=== PATIENT | male | born 1945 | race Caucasian/White ===

== ENCOUNTER 2020-08-29 16:06 | Inpatient (IN) | payer MEDICARE ==
[2020-08-29] MEDS ORDERED: SODIUM CHLORIDE 0.9% 1,000 ML IV ONE ×2 (16:21→17:14)
[2020-08-29] MEDS ORDERED: MORPHINE SULFATE 4 MG/ML SYRINGE IVP STA (16:21)
[2020-08-29] MEDS ORDERED: KETOROLAC 15 MG/ML 1 ML VIAL IVP STA (16:21)
[2020-08-29] MEDS ORDERED: ACETAMINOPHEN TAB 325 MG TAB PO STA (16:21)
--- NOTE | 2020-08-29 16:52 | ED ---
Fever HPI - General Chief Complaint: Fever Stated Complaint: Fever,Chemo pt Time Seen by Provider: 08/29/20 16:12 Source: patient, family Mode of arrival: ambulatory Limitations: no limitations - History of Present Illness Initial Comments: Patient is a 74-year-old male with past medical history remarkable for CAD, cholangiocarcinoma currently receiving chemotherapy, chest pain/angina, hyperlipidemia, hypertension, MT who presents emergency Department complaining of 3 day history of generalized body aches with an associated fever. Patient has been having fevers up to 102F that have responded to Tylenol at home. Patient is not having any obvious symptoms at this time of infection, denying any dysuria, cough, diarrhea. He states he is frequently nauseous and denies any new abdominal pain, but does endorse some right upper quadrant epigastric abdominal pain. He states he feels dehydrated. He has most known sick contacts at home. He did receive the COVID-19 vaccination is up-to-date. He denies any chest pain at this time. He denies any lightheadedness or blurry vision at this time. They're concerned because they know he is high risk for infection and family brought him into the emergency department for evaluation. Patient does h ave a history of a Whipple procedure. - Related Data Allergies Allergy/AdvReac Type Severity Reaction Status Date / Time No Known Allergies Allergy Verified 08/29/20 16:11 Review of Systems ROS Statement: Those systems with pertinent positive or pertinent negative responses have been documented in the HPI. Review of Systems: CONST: Endorses fever EYES: Denies blurry vision ENT: Denies nasal congestion C/V: Denies Chest pain RESP: Denies shortness of breath GI: Endorses abdominal pain, nausea : Denies dysuria SKIN: Denies rash. MSK: Endorses generalized joint discomfort. NEURO: Denies headache ROS Other: All systems not noted in ROS Statement are negative. Past Medical History Past Medical History: Coronary Artery Disease (CAD), Cancer, Chest Pain / Angina, Hyperlipidemia, Hypertension, Myocardial Infarction (MT) History of Any Multi-Drug Resistant Organisms: None Reported Past Surgical History: Cholecystectomy, Coronary Bypass/CABG, Heart Catheterization, Heart Catheterization With Stent, Hernia Repair Additional Past Surgical History / Comment(s): whipple procedure Past Psychological History: No Psychological Hx Reported Smoking Status: Never smoker Past Alcohol Use History: None Reported Past Drug Use History: None Reported General Exam - General Exam Comments Initial Comments: General: Somewhat cachectic but in no acute distress. HEAD: Normal with no signs of head trauma. EYES: PERRLA, EOMI, conjunctiva normal, no discharge. ENT: Hearing is grossly intact. Patient has dry mucous membranes. Oropharynx is otherwise within normal limits. RESPIRATORY: Clear breath sounds bilaterally. No wheezes, rales, or rhonchi. C/V: Regular rate and rhythm. S1 and S2 auscultated, no edema, peripheral pulses 2+ and intact throughout ABD: Abdomen soft, nondistended. Patient is tender to palpation in the epigastric and right upper quadrant regions, they states is typical. There is no guarding. There is no rebound tenderness. There are no peritoneal signs. EXT: Normal range of motion, no obvious deformity SKIN: No rashes or lesions observed on exposed skin. NEURO: Alert and oriented x 4. Cranial nerves II-XII intact. No focal sensory or strength deficits. Limitations: no limitations Course Vital Signs 08/29/20 08/29/20 16:07 18:21 Temperature 100.7 F H 99.7 F H Pulse Rate 89 82 Respiratory 24 18 Rate Blood Pressure 132/61 103/55 O2 Sat by Pulse 98 100 Oximetry Medical Decision Making - Medical Decision Making Based on the patient's presentation and physical exam, I'm concerned for possible sepsis versus neutropenia and fever versus other source of infection at this time. He is a high risk due to the chemoradiation and being immunocompromised. Therefore brought workup will be obtained including blood cultures, laboratory studies, urinalysis, chest x-ray as well as a CT abdomen and pelvis. He will be given 1 L fluid bolus. I Rex be ordered. I will hold antibiotics initially and evaluated for obvious source of infection, but anticipates starting on his laboratory studies returned. He'll be contacted to continue his cardiac monitoring. We will obtain a screening EKG. He'll be given Tylenol for his fever as well as pain medications. He was in agreement with this plan. Patient's EKG revealed no acute signs of ischemia. Chest x-ray showed no acute cardiopulmonary process. Laboratory studies were remarkable for a leukopenia with a white count of 3.7 but no neutropenia. Patient has a normocytic anemia of 11.2. Patient has an elevated lactic acidosis of 4.1 with no anion gap present. He does appear mildly dehydrated with a slightly decreased sodium of 135. Patient does have some mild obstructive signs on blood work, with an elevated alk phos of 833 but LFTs are mildly elevated near 100. Urinalysis is unremarkable. Patient was coded and flu negative. CT abdomen and pelvis revealed postsurgical changes but no acute signs of infection or process. To the patient's lactic acidosis as well as concern for sepsis due to having 3 sirs criteria including leukopenia, tachycardia, fever, we will start him on empiric antibiotics, vancomycin and cefepime. An additional fluid bolus is ordered. repeat lactate is pending. Reevaluation, patient's ear is slightly improved. I did review his laboratory studies as well as imaging with him and explained the plan for admission for sepsis. The patient was in agreement with this plan. I do not believe that he requires ICU admission at this time as he is hemodynamically stable and generally well appearing otherwise. I did consult the patient's oncologist, Dr. Null who agreed with the plan and requested that we obtain an ultrasound of the gallbladder to assess for any obstructive pathology. This was ordered. I spoke with the admitting team under Dr. Maria who was in agreement and accepted the admission. She requested that I consult infectious disease doctor Dr. Gallagher, who I spoke with over the phone and agreed to follow the patient. He was in agreement with the antibiotic selection as well. Patient was therefore admitted to the hospital in serious condition. - Lab Data Result diagrams: 08/29/20 16:31 08/29/20 16:31 Lab Results 08/29/20 08/29/20 08/29/20 Range/Units 16:31 16:31 16:31 WBC 3.7 L (3.8-10.6) k/uL RBC 3.61 L (4.30-5.90) m/uL Hgb 11.2 L (13.0-17.5) gm/dL Hct 32.5 L (39.0-53.0) % MCV 89.9 (80.0-100.0) fL MCH 31.0 (25.0-35.0) pg MCHC 34.4 (31.0-37.0) g/dL RDW 16.2 H (11.5-15.5) % Plt Count 340 (150-450) k/uL MPV 8.0 Neutrophils % (Manual) 69 % Band Neuts % (Manual) 3 % Lymphocytes % (Manual) 14 % Monocytes % (Manual) 12 % Eosinophils % (Manual) 1 % Basophils % (Manual) 1 % Neutrophils # (Manual) 2.60 (1.3-7.7) k/uL Lymphocytes # (Manual) 0.52 L (1.0-4.8) k/uL Monocytes # (Manual) 0.44 (0-1.0) k/uL Eosinophils # (Manual) 0.04 (0-0.7) k/uL Basophils # (Manual) 0.04 (0-0.2) k/uL Nucleated RBCs 0 (0-0) /100 WBC Manual Slide Review Performed Anisocytosis Slight PT 12.6 H (9.0-12.0) sec INR 1.2 H (<1.2) APTT 24.4 (22.0-30.0) sec Sodium 135 L (137-145) mmol/L Potassium 4.1 (3.5-5.1) mmol/L Chloride 104 (98-107) mmol/L Carbon Dioxide 21 L (22-30) mmol/L Anion Gap 10 mmol/L BUN 22 H (9-20) mg/dL Creatinine 0.75 (0.66-1.25) mg/dL Est GFR (CKD-EPI)AfAm >90 (>60 ml/min/1.73 sqM) Est GFR (CKD-EPI)NonAf 89 (>60 ml/min/1.73 sqM) Glucose 219 H (74-99) mg/dL Lactic Ac Sepsis Rflx Plasma Lactic Acid Uli (0.7-2.0) mmol/L Calcium 8.7 (8.4-10.2) mg/dL Magnesium 1.6 (1.6-2.3) mg/dL Total Bilirubin 1.5 H (0.2-1.3) mg/dL AST 112 H (17-59) U/L ALT 90 H (4-49) U/L Alkaline Phosphatase 833 H (38-126) U/L Total Protein 5.4 L (6.3-8.2) g/dL Albumin 2.8 L (3.5-5.0) g/dL Urine Color Urine Appearance (Clear) Urine pH (5.0-8.0) Ur Specific [place] (1.001-1.035) Urine Protein (Negative) Urine Glucose (UA) (Negative) Urine Ketones (Negative) Urine Blood (Negative) Urine Nitrite (Negative) Urine Bilirubin (Negative) Urine Urobilinogen (<2.0) mg/dL Ur Leukocyte Esterase (Negative) Influenza Type A (PCR) (Not Detectd) Influenza Type B (PCR) (Not Detectd) RSV (PCR) (Not Detectd) SARS-CoV-2 (PCR) (Not Detectd) 08/29/20 08/29/20 08/29/20 Range/Units 16:31 16:31 16:45 WBC (3.8-10.6) k/uL RBC (4.30-5.90) m/uL Hgb (13.0-17.5) gm/dL Hct (39.0-53.0) % MCV (80.0-100.0) fL MCH (25.0-35.0) pg MCHC (31.0-37.0) g/dL RDW (11.5-15.5) % Plt Count (150-450) k/uL MPV Neutrophils % (Manual) % Band Neuts % (Manual) % Lymphocytes % (Manual) % Monocytes % (Manual) % Eosinophils % (Manual) % Basophils % (Manual) % Neutrophils # (Manual) (1.3-7.7) k/uL Lymphocytes # (Manual) (1.0-4.8) k/uL Monocytes # (Manual) (0-1.0) k/uL Eosinophils # (Manual) (0-0.7) k/uL Basophils # (Manual) (0-0.2) k/uL Nucleated RBCs (0-0) /100 WBC Manual Slide Review Anisocytosis PT (9.0-12.0) sec INR (<1.2) APTT (22.0-30.0) sec Sodium (137-145) mmol/L Potassium (3.5-5.1) mmol/L Chloride (98-107) mmol/L Carbon Dioxide (22-30) mmol/L Anion Gap mmol/L BUN (9-20) mg/dL Creatinine (0.66-1.25) mg/dL Est GFR (CKD-EPI)AfAm (>60 ml/min/1.73 sqM) Est GFR (CKD-EPI)NonAf (>60 ml/min/1.73 sqM) Glucose (74-99) mg/dL Lactic Ac Sepsis Rflx Plasma Lactic Acid Uli 4.1 H* (0.7-2.0) mmol/L Calcium (8.4-10.2) mg/dL Magnesium (1.6-2.3) mg/dL Total Bilirubin (0.2-1.3) mg/dL AST (17-59) U/L ALT (4-49) U/L Alkaline Phosphatase (38-126) U/L Total Protein (6.3-8.2) g/dL Albumin (3.5-5.0) g/dL Urine Color Yellow Urine Appearance Clear (Clear) Urine pH 5.5 (5.0-8.0) Ur Specific [place] 1.026 (1.001-1.035) Urine Protein Trace H (Negative) Urine Glucose (UA) Trace H (Negative) Urine Ketones Negative (Negative) Urine Blood Negative (Negative) Urine Nitrite Negative (Negative) Urine Bilirubin Negative (Negative) Urine Urobilinogen <2.0 (<2.0) mg/dL Ur Leukocyte Esterase Negative (Negative) Influenza Type A (PCR) Not Detected (Not Detectd) Influenza Type B (PCR) Not Detected (Not Detectd) RSV (PCR) Not Detected (Not Detectd) SARS-CoV-2 (PCR) Not Detected (Not Detectd) 08/29/20 Range/Units 17:07 WBC (3.8-10.6) k/uL RBC (4.30-5.90) m/uL Hgb (13.0-17.5) gm/dL Hct (39.0-53.0) % MCV (80.0-100.0) fL MCH (25.0-35.0) pg MCHC (31.0-37.0) g/dL RDW (11.5-15.5) % Plt Count (150-450) k/uL MPV Neutrophils % (Manual) % Band Neuts % (Manual) % Lymphocytes % (Manual) % Monocytes % (Manual) % Eosinophils % (Manual) % Basophils % (Manual) % Neutrophils # (Manual) (1.3-7.7) k/uL Lymphocytes # (Manual) (1.0-4.8) k/uL Monocytes # (Manual) (0-1.0) k/uL Eosinophils # (Manual) (0-0.7) k/uL Basophils # (Manual) (0-0.2) k/uL Nucleated RBCs (0-0) /100 WBC Manual Slide Review Anisocytosis PT (9.0-12.0) sec INR (<1.2) APTT (22.0-30.0) sec Sodium (137-145) mmol/L Potassium (3.5-5.1) mmol/L Chloride (98-107) mmol/L Carbon Dioxide (22-30) mmol/L Anion Gap mmol/L BUN (9-20) mg/dL Creatinine (0.66-1.25) mg/dL Est GFR (CKD-EPI)AfAm (>60 ml/min/1.73 sqM) Est GFR (CKD-EPI)NonAf (>60 ml/min/1.73 sqM) Glucose (74-99) mg/dL Lactic Ac Sepsis Rflx Y Plasma Lactic Acid Uli (0.7-2.0) mmol/L Calcium (8.4-10.2) mg/dL Magnesium (1.6-2.3) mg/dL Total Bilirubin (0.2-1.3) mg/dL AST (17-59) U/L ALT (4-49) U/L Alkaline Phosphatase (38-126) U/L Total Protein (6.3-8.2) g/dL Albumin (3.5-5.0) g/dL Urine Color Urine Appearance (Clear) Urine pH (5.0-8.0) Ur Specific [place] (1.001-1.035) Urine Protein (Negative) Urine Glucose (UA) (Negative) Urine Ketones (Negative) Urine Blood (Negative) Urine Nitrite (Negative) Urine Bilirubin (Negative) Urine Urobilinogen (<2.0) mg/dL Ur Leukocyte Esterase (Negative) Influenza Type A (PCR) (Not Detectd) Influenza Type B (PCR) (Not Detectd) RSV (PCR) (Not Detectd) SARS-CoV-2 (PCR) (Not Detectd) - EKG Data -: EKG Interpreted by Me EKG Comments: 12-lead Electrocardiogram Interpretation Note EKG was reviewed and interpreted by myself. 12-lead ECG performed at 1625 is interpreted by me as revealing normal sinus rhythm with a PAC. At a rate of 85 beats per minute. [place] is normal. [place] interval is 140 ms, QRS duration is 80 ms, QTC is 464 ms.. There were no ST or T wave abnormalities to suggest myocar dial ischemia or injury. R wave progression across the precordium was satisfactory. By my interpretation this EKG is non-diagnostic for acute ischemia. Disposition Clinical Impression: Sepsis, Leukopenia, Systemic inflammatory response syndrome (SIRS), Fever of unknown origin, Cholangiocarcinoma Disposition: ADMITTED IP TO THIS HOSP Condition: Serious Referrals: Marlon Avelar MD [Primary Care Provider] - 1-2 days
--- NOTE | 2020-08-29 17:00 | XR ---
EXAMINATION TYPE: XR chest 1V portable DATE OF EXAM: 08/29/2020 COMPARISON: NONE HISTORY: Fever TECHNIQUE: FINDINGS: There is no heart failure nor confluent pneumonic infiltrate. Costophrenic angles are fairl y clear. There are no hilar masses. There are sternal wires. IMPRESSION: No active cardiopulmonary disease. Normal heart.
[2020-08-29 17:02] LABS: Potassium 4.1 mmol/L (3.5-5.1)
[2020-08-29 17:03] LABS: ALT 90 U/L (4-49); AST 112 U/L (17-59); African American GFR (CKD) >90 (>60 ml/min/1.73 sqM); Albumin 2.8 g/dL (3.5-5.0); Alkaline Phosphatase 833 U/L (38-126); Anion Gap 10 mmol/L; Blood Urea Nitrogen 22 mg/dL (9-20); Calcium 8.7 mg/dL (8.4-10.2); Carbon Dioxide 21 mmol/L (22-30); Chloride 104 mmol/L (98-107); Glucose 219 mg/dL (74-99); Magnesium 1.6 mg/dL (1.6-2.3); Non-African American GFR(CKD) 89 (>60 ml/min/1.73 sqM); Sodium 135 mmol/L (137-145); Total Bilirubin 1.5 mg/dL (0.2-1.3); Total Protein 5.4 g/dL (6.3-8.2)
[2020-08-29 17:07] LABS: INR 1.2 (<1.2); Partial Thromboplastin Time 24.4 sec (22.0-30.0); Prothrombin Time 12.6 sec (9.0-12.0)
[2020-08-29 17:13] LABS: Anisocytosis Slight; HCT 32.5 % (39.0-53.0); HGB 11.2 gm/dL (13.0-17.5); MCHC 34.4 g/dL (31.0-37.0); MCV 89.9 fL (80.0-100.0); Platelet Count 340 k/uL (150-450); RBC 3.61 m/uL (4.30-5.90); RDW 16.2 % (11.5-15.5); WBC 3.7 k/uL (3.8-10.6)
[2020-08-29] MEDS ORDERED: VANCOMYCIN IV PER PHARMACY 1 EACH MISC MISCELLANE PRN (17:13)
[2020-08-29] MEDS ORDERED: CEFEPIME 2 GM in SODIUM CHLORIDE 0.9% 100 ML IVPB STA (17:14)
[2020-08-29] MEDS ORDERED: VANCOMYCIN 1,000 MG in SODIUM CHLORIDE 0.9% 250 ML IVPB STA (17:21)
[2020-08-29 17:49] LABS: Appearance,Urine Clear (Clear); Bilirubin,Urine Negative (Negative); Blood,Urine Negative (Negative); Color,Urine Yellow; Glucose,Urine (UA) Trace (Negative); Ketones,Urine Negative (Negative); Leukocyte Esterase,Urine Negative (Negative); Nitrite,Urine Negative (Negative); PH, Urine 5.5 (5.0-8.0); Protein,Urine Trace (Negative); Specific Gravity,Urine 1.026 (1.001-1.035); Urobilinogen,Urine <2.0 mg/dL (<2.0)
[2020-08-29 17:49] LABS: Band Neutrophils % 3 %; Basophils # (M) 0.04 k/uL (0-0.2); Eosinophils # (M) 0.04 k/uL (0-0.7); Lymphocytes # (M) 0.52 k/uL (1.0-4.8); Monocytes # (M) 0.44 k/uL (0-1.0); Neutrophils % (M) 69 %; Nucleated Red Blood Cells 0 /100 WBC (0-0); Total Cells Counted 100
--- NOTE | 2020-08-29 18:05 | CT ---
EXAMINATION TYPE: CT abdomen pelvis w con DATE OF EXAM: 08/29/2020 COMPARISON: None HISTORY: Fever and abdominal pain. Hx of cholangio carcinoma. CT DLP: 716.1 mGycm Automated exposure control for dose reduction was used. CONTRAST: Performed with IV Contrast, patient injected with 100ml mL of Isovue 300. Images obtained from the diaphragm to the floor the pelvis with IV contrast. There is mild subsegmental atelectasis at the lung bases. Heart size is normal. There is no pericardi al effusion. There are sternal wires. There is air in the biliary tree. Liver spleen stomach appear intact. The bile ducts are not dilated. There are surgical clips in the gastric antrum. There is significant pancreatic atrophy. There are s urgical clips at the nina hepatis. There is cholecystectomy. There is no adrenal mass. Kidneys have normal size. There is normal contrast opacification of the kid neys. There is no hydronephrosis. Delayed images show normal renal excretion. There is no retroperito rafy adenopathy. Bladder distends smoothly. There is no inguinal hernia. There are some sigmoid diver ticula. I see no diverticulitis. Appendix is anterior and appears normal. There is no mesenteric dirk a. There is no ascites or free air. There is no sign of a bowel obstruction. The lumbar vertebra show normal alignment. There is degenerative disc space narrowing at L3-4 L4-5 wi th spur formation. There is no compression fracture. The bony pelvis is intact. Hip joints are intact . IMPRESSION: Postsurgical changes with pancreatic atrophy and apparent resection of the pancreatic head and air re flux into the biliary tree. Surgery at the gastric antrum. Cholecystectomy. No dilated ducts. I do no t see sign of recurrent tumor. Sigmoid diverticulosis. Normal appendix. No bowel obstruction.
[2020-08-29] MEDS ORDERED: ACETAMINOPHEN TAB 325 MG TAB PO PRN (18:46)
[2020-08-29] MEDS: SODIUM CHLORIDE 0.9% 1,000 ML IV ONE (20:00)
--- NOTE | 2020-08-29 20:22 | US ---
EXAMINATION TYPE: US abdomen limited DATE OF EXAM: 08/29/2020 COMPARISON: CT CLINICAL HISTORY: evaluate for obstructive process. Evaluate for obstructive process per order. Hx ch olecystectomy, whipple. EXAM MEASUREMENTS: Liver Length: 14.7 cm CBD: Unable to visualize. Right Kidney: 10.7 x 5.6 x 4.5 cm Limited due to overlying bowel gas. Pancreas: Limited visibility. Liver: Limited. Most images taken intercostally. Appears coarse in echotexture. Gallbladder: Hx cholecystectomy. Evidence for sonographic Mak's sign: No CBD: Unable to visualize. Right Kidney: No hydronephrosis or masses seen IMPRESSION: Common bile duct not seen. No sign of dilation of the intrahepatic bile ducts. No focal liver defect.
[2020-08-29 22:07] LABS: Glucose,Whole Blood 206 mg/dL (75-99)
[2020-08-30] MEDS: VANCOMYCIN 1,000 MG in SODIUM CHLORIDE 0.9% 250 ML IVPB SCH ×2 (05:27→18:25)
[2020-08-30] MEDS: SODIUM CHLORIDE 0.9% 1,000 ML IV ONE (06:02)
[2020-08-30 06:29] LABS: African American GFR (CKD) >90 (>60 ml/min/1.73 sqM); Non-African American GFR(CKD) >90 (>60 ml/min/1.73 sqM)
[2020-08-30 07:30] LABS: Glucose,Whole Blood 137 mg/dL (75-99)
--- NOTE | 2020-08-30 07:41 | P.CONS ---
History of Present Illness - Reason for Consult Consult date: 08/30/20 Currently undergoing chemotherapy for CHolangiocarcinoma Requesting physician: Roberto Cazares - Chief Complaint Fever - History of Present Illness Mr Mcarthur is a pleasant white male, with overall well-controlled medical problems. He had presented in 03/10 with complains of vague upper abdominal discomfort, some nausea and decreased appetite as well as weight loss. He was found to have elevated bilirubin with evidence of bleeding obstruction. He underwent CBD stenting. 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 CT scan from 03/10/20 showed no evidence of metastatic disease. The patient was felt to be a candidate for definitive resection he underwent surgery on 04/22/20. He had a Whipple's procedure with pancreatic or duodenectomy, and retroperitone al lymph node dissection. Biopsy showed 1.8 cm cholangiocarcinoma in the pancreatic portion of the bile duct (extrahepatic for adenocarcinoma), invasion to the depth of 5-12 mm. Margins were negative. Pancreatic margins were uninvolved. 2/32 lymph nodes were involved. In addition, and hepatic artery nodes and portal lymph nodes were also excised and found to be negative. The patient had somewhat slow recovery after surgery, with decreased appetite, abdominal pain, and persistent weight loss. He had hospital admission in 06/08 for fever and abdominal pain with no definite source of infection found on scans. He improved with supportive treatment including antibiotics. Appetite slowly improved with medications for gastric emptying, as well as Creon. He was then referred here for adjuvant systemic therapy. Patient states that he has noticed definite gradual improvement since the first week of 07/08. Repeat CT scans on 05/12/20 had shown a 1.9 cm irregular fluid and gas in the surgical site, and some wall thickening and mucosal enhancement of the bile ducts. Cholangitis was not ruled out. No evidence of metastatic disease. Repeat CT abdomen and pelvis without contrast on 06/02/20 showed nonspecific abdomen with some attenuation of the anterior presented suggestive of in flammation. Again no metastatic disease noted. Patient denied any history of malignancy other than skin cancer. 08/04/20-He was supposed to start chemo yesterday but he cancelled because he had F, stomach pain, upset stomach, diarrhea. He can have diarrhea every few hours, it was watery yesterday. Feeling ok today, no fevers just a wore out. Cramping in the lower abd, sharp pain in the upper abd is not new for him, been since surgery. Occasional heartburn. No other c/o on a 10 point ROS He decided adjuvant chemotherapy per [facility] conditions with gemcitabine and oxaliplatin in 08/10/20. His status post 1 cycle. He denied any f/c/v. He reports increased nausea, and abdominal discomfort, interms of burning, bloating. Diarrhea is improved. He has increase in fatigue. No significant mucositis. His ROS is otherwise as per HPI and negative out of 10 The pt has had worsening of some of the symptoms he was having prior to chemo, since starting rx. His CBC is normal, other than a plt of 109 - CHeck labs - Continue chemo - His increased nausea appears to be related to gastritis. He is on OMeprazole 20 mg BID. Add Carafate - Supportive care measures discussed 08/24/20-patient is status post cycle 1 day 1 and 8 of Gemzar and he completed his first 14 days of Xeloda yesterday. Starting 1 week ago pt notes N, stomach upset, no V, mod/severe oral irritation which has caused him to not tolerate oral intake very well, throat is not sore, his feet are swollen, red and painful around the ankles, no numbness, falls. Moderately weak. No cardiac or respiratory symptoms to report. No changes in bowel or bladder that are concerning. Today patient presents to the hospital with increased fevers. Kohler cultures, IV broad spectum initiated. He has been struggling with nausea throughout as well. Review of Systems All systems: negative Constitutional: Reports as per HPI Past Medical History Past Medical History: Coronary Artery Disease (CAD), Cancer, Chest Pain / Angina, Hyperlipidemia, Hypertension, Myocardial Infarction ([place]) Last Myocardial Infarction Date:: 2000 History of Any Multi-Drug Resistant Organisms: None Reported Past Surgical History: Cholecystectomy, Coronary Bypass/CABG, Heart Cath eterization, Heart Catheterization With Stent, Hernia Repair Additional Past Surgical History / Comment(s): whipple procedure Date of Last Stent Placement:: 2000 Past Psychological History: No Psychological Hx Reported Smoking Status: Former smoker Past Alcohol Use History: None Reported Past Drug Use History: None Reported Medications and Allergies Home Medications Medication Instructions Recorded Confirmed Type Capecitabine [Xeloda] 1,500 mg PO DIRECTED 08/29/20 08/29/20 History Enalapril Maleate 5 mg PO BID 08/29/20 08/29/20 History Lipase/Protease/Amylase [Joce Dr 1 cap PO TID-W/MEALS 08/29/20 08/29/20 History 24,000 Units Capsule] Metoprolol Tartrate [Lopressor] 50 mg PO BID 08/29/20 08/29/20 History Omeprazole 20 mg PO BID 08/29/20 08/29/20 History Ondansetron HCl [Zofran] 4 mg PO Q4H PRN 08/29/20 08/29/20 History Sucralfate [Carafate] 1 gm PO TID 08/29/20 08/29/20 History Tamsulosin HCl [Flomax] 0.4 mg PO DAILY 08/29/20 08/29/20 History metFORMIN HCL 1,000 mg PO BID-W/MEALS 08/29/20 08/29/20 History Allergies Allergy/AdvReac Type Severity Reaction Status Date / Time No Known Allergies Allergy Verified 08/29/20 19:15 Physical Exam Vitals: Vital Signs Temp Pulse Pulse Resp BP BP BP 08/30/20 05:00 97.7 F 65 20 108/62 08/29/20 21:50 98.1 F 67 20 114/65 08/29/20 21:27 81 18 112/67 08/29/20 18:21 99.7 F H 82 18 103/55 08/29/20 16:07 100.7 F H 89 24 132/61 Pulse Ox 08/30/20 05:00 100 08/29/20 21:50 100 08/29/20 21:27 100 08/29/20 18:21 100 08/29/20 16:07 98 Intake and Output 08/29/20 08/30/20 08/30/20 22:59 06:59 14:59 Intake Total 100 100 Balance 100 100 Intake: Oral 100 100 Other: Voiding Method Toilet # Voids 2 Weight 56.245 kg - Constitutional General appearance: cooperative, no acute distress - EENT Dry mucus membraines, Lesions healing to lips (herpetic) Eyes: EOMI ENT: hard of hearing - Neck Neck: normal ROM - Respiratory Respiratory: bilateral: diminished - Cardiovascular Rhythm: regularly irregular - Gastrointestinal General gastrointestinal: soft, tenderness - Integumentary Integumentary: pale - Neurologic Neurologic: CNII-XII intact - Musculoskeletal Musculoskeletal: generalized weakness - Psychiatric Psychiatric: A&O x's 3, appropriate affect, intact judgment & insight Results CBC & Chem 7: 08/30/20 05:46 08/30/20 05:46 Labs: Abnormal Lab Results - Last 24 Hours (Table) 08/29/20 08/29/20 08/29/20 Range/Units 16:31 16:31 16:31 WBC 3.7 L (3.8-10.6) k/uL RBC 3.61 L (4.30-5.90) m/uL Hgb 11.2 L (13.0-17.5) gm/dL Hct 32.5 L (39.0-53.0) % RDW 16.2 H (11.5-15.5) % Lymphocytes # (Manual) 0.52 L (1.0-4.8) k/uL PT 12.6 H (9.0-12.0) sec INR 1.2 H (<1.2) Sodium 135 L (137-145) mmol/L Carbon Dioxide 21 L (22-30) mmol/L BUN 22 H (9-20) mg/dL Glucose 219 H (74-99) mg/dL POC Glucose (mg/dL) (75-99) mg/dL Plasma Lactic Acid Uli (0.7-2.0) mmol/L Total Bilirubin 1.5 H (0.2-1.3) mg/dL AST 112 H (17-59) U/L ALT 90 H (4-49) U/L Alkaline Phosphatase 833 H (38-126) U/L Total Protein 5.4 L (6.3-8.2) g/dL Albumin 2.8 L (3.5-5.0) g/dL Urine Protein (Negative) Urine Glucose (UA) (Negative) 08/29/20 08/29/20 08/29/20 Range/Units 16:31 16:45 22:05 WBC (3.8-10.6) k/uL RBC (4.30-5.90) m/uL Hgb (13.0-17.5) gm/dL Hct (39.0-53.0) % RDW (11.5-15.5) % Lymphocytes # (Manual) (1.0-4.8) k/uL PT (9.0-12.0) sec INR (<1.2) Sodium (137-145) mmol/L Carbon Dioxide (22-30) mmol/L BUN (9-20) mg/dL Glucose (74-99) mg/dL POC Glucose (mg/dL) 206 H (75-99) mg/dL Plasma Lactic Acid Uli 4.1 H* (0.7-2.0) mmol/L Total Bilirubin (0.2-1.3) mg/dL AST (17-59) U/L ALT (4-49) U/L Alkaline Phosphatase (38-126) U/L Total Protein (6.3-8.2) g/dL Albumin (3.5-5.0) g/dL Urine Protein Trace H (Negative) Urine Glucose (UA) Trace H (Negative) 08/30/20 Range/Units 07:29 WBC (3.8-10.6) k/uL RBC (4.30-5.90) m/uL Hgb (13.0-17.5) gm/dL Hct (39.0-53.0) % RDW (11.5-15.5) % Lymphocytes # (Manual) (1.0-4.8) k/uL PT (9.0-12.0) sec INR (<1.2) Sodium (137-145) mmol/L Carbon Dioxide (22-30) mmol/L BUN (9-20) mg/dL Glucose (74-99) mg/dL POC Glucose (mg/dL) 137 H (75-99) mg/dL Plasma Lactic Acid Uli (0.7-2.0) mmol/L Total Bilirubin (0.2-1.3) mg/dL AST (17-59) U/L ALT (4-49) U/L Alkaline Phosphatase (38-126) U/L Total Protein (6.3-8.2) g/dL Albumin (3.5-5.0) g/dL Urine Protein (Negative) Urine Glucose (UA) (Negative) CT scan - abdomen: report reviewed CT scan - pelvis: report reviewed Assessment and Plan (1) Cholangiocarcinoma Current Visit: Yes Status: Acute Code(s): C22.1 - INTRAHEPATIC BILE DUCT CARCINOMA SNOMED Code(s): 156231907 (2) Fever Current Visit: Yes Status: Acute Code(s): R50.9 - FEVER, UNSPECIFIED SNOMED Code(s): 634359472 (3) Systemic inflammatory response syndrome (SIRS) Current Visit: Yes Status: Acute Code(s): R65.10 - SIRS OF NON-INFECTIOUS OR IGIN W/O ACUTE ORGAN DYSFUNCTION SNOMED Code(s): 557373729 Plan: Plan: - Hold Chemo until resolution of above - Await kohler cultures and continue abx Add PT and in chair daily Add Urea 40% cream hands and feet BID Add Incentive Spirometer Stool Studies with diarrhea. Physician Attest: I have completed the full history and physical and agree with above dictation, dictated as a ascribe
[2020-08-30] MEDS ORDERED: ONDANSETRON 4 MG TAB PO PRN (08:39)
[2020-08-30 08:59] LABS: ALT 73 U/L (4-49); AST 77 U/L (17-59); Albumin 2.1 g/dL (3.5-5.0); Albumin/Globulin Ratio 0.9; Alkaline Phosphatase 597 U/L (38-126); Anion Gap 1 mmol/L; Blood Urea Nitrogen 18 mg/dL (9-20); Calcium 8.1 mg/dL (8.4-10.2); Carbon Dioxide 28 mmol/L (22-30); Chloride 109 mmol/L (98-107); Globulin 2.3 g/dL; Glucose 142 mg/dL (74-99); Potassium 3.9 mmol/L (3.5-5.1); Sodium 138 mmol/L (137-145); Total Bilirubin 0.7 mg/dL (0.2-1.3); Total Protein 4.4 g/dL (6.3-8.2)
[2020-08-30] MEDS: lisinopriL 20 MG TAB PO SCH (09:06)
[2020-08-30 09:29] LABS: Anisocytosis Slight; HCT 28.9 % (39.0-53.0); Hypochromasia Slight; MCH 29.7 pg (25.0-35.0); MCV 92.8 fL (80.0-100.0); Mean Platelet Volume 8.7; Platelet Count 291 k/uL (150-450); RBC 3.11 m/uL (4.30-5.90); RDW 16.7 % (11.5-15.5); WBC 2.9 k/uL (3.8-10.6)
[2020-08-30 09:36] LABS: HGB 9.3 gm/dL (13.0-17.5)
[2020-08-30] MEDS: METOPROLOL TARTRATE 50 MG TAB PO SCH ×2 (09:38→21:25)
[2020-08-30] MEDS: TAMSULOSIN 0.4 MG CAP.ER.24H PO SCH (09:38)
[2020-08-30] MEDS: SUCRALFATE 1 GM TAB PO SCH ×3 (09:38→21:25)
[2020-08-30] MEDS: PANTOPRAZOLE 40 MG TABLET PO SCH ×2 (09:38→21:25)
[2020-08-30] MEDS: CEFEPIME 2 GM in SODIUM CHLORIDE 0.9% 100 ML IVPB SCH ×2 (09:56→16:21)
[2020-08-30 11:39] VITALS: BMI 16.8
[2020-08-30 12:38] LABS: Glucose,Whole Blood 191 mg/dL (75-99)
[2020-08-30] MEDS: INSULIN ASPART (NovoLOG) 100 UNIT/ML VIAL SQ SCH ×3 (12:49→21:26)
[2020-08-30] MEDS: MINERAL OIL-WHITE PETROLATUM 120 GM JAR TOPICAL SCH ×2 (12:50→21:26)
[2020-08-30] MEDS: LIPASE 5,000/PROTEASE 17,000/AMYLASE 24,000 PO SCH ×2 (12:50→18:26)
--- NOTE | 2020-08-30 14:10 | P.HPIM ---
History of Present Illness H&P Date: 08/30/20 HISTORY OF PRESENT ILLNESS This is a 74-year-old male patient of Dr. Avelar with past history of myocardial infarction in 2000 with coronary artery disease status post PCI, hypertension, hyperlipidemia, history of CBD adenocarcinoma status post Whipple procedure with pancreatic or duodenectomy and retroperitoneal lymph node dissection on April 2020. No evidence of metastatic disease. Patient is status one cycle of gemcitabine and oxaliplatin in 08/10/20 and status post 14 days of Xeloda completed yesterday and cycle 1 of Gemzar patient states that he has had 3 days of fever but has been on and off since July. He complains of chronic abdominal pain. He states he has diarrhea on and off. He denies any black stool or bloody stool. He denies any palpitations or back pain. No dizziness. No seizure activity. At the time of evaluation, patient denies any nausea today. Patient presented to the clinic [facility] emergency center and found to have temperature max 100.7, heart rate 89, saturating rate 24, blood pressure 132/61, pulse ox 90% on room air. EKG was a sinus rhythm with no acute ST changes. WBC 3.7, hemoglobin 11.2, platelet count 340. Sodium 135, potassium 4.1, chloride 104, CO2 21, BUN 22 creatinine 0.75. Blood sugar 218. INR 1.2. Magnesium 1.6. Total bilirubin 1.5, AST 112, ALT 90, alkaline phosphatase 833. Albumin 2.8. Lactic acid 4.1 with repeat of 1.4. Urinalysis clear with nitrate and leukoesterase negative. Influenza, RSV, COVID-19 not detected. CAT scan of the abdomen and pelvis with contrast revealed postop changes with pancreatic atrophy and apparent resection of pancreatic head and air reflux into the biliary tree. Surgery at the gastric antrum. Cholecystectomy. No dilated ducts. No sign of recurrent tumor. Sigmoid diverticulosis. Normal appendix. No bowel obstruction. Chest x-ray reveals no active cardiopulmonary disease. Normal heart. Abdominal ultrasound revealed common bile duct not seen. No sign of dilation of the intrahepatic bile ducts. No focal liver defect. Patient has been admitted to the [facility] floor, consult with oncology and infectious disease. For now patient is continued on vancomycin and cefepime until seen by infectious disease. REVIEW OF SYSTEMS Constitutional: Reports fever,Reports chills, no night sweats. Reports weight change. Reports weakness, Reports fatigue no lethargy. No daytime sleepiness. EENT: No headache. No blurred vision or double vision, no loss of vision. No loss of Hearing, no ringing in the ears, no dizziness. No nasal drainage or congestion. No epistaxis. No sore throat. Lungs: No shortness of breath, cough, no sputum production. No wheezing. Cardiovascular: No chest pain, no lower extremity edema. No palpitations. No paroxysmal nocturnal dyspnea. No orthopnea. No lightheadedness or dizziness. No syncopal episodes. Abdominal: Reports abdominal pain. Reports nausea, no vomiting. No diarrhea. No constipation. No bloody or tarry stools. Reports loss of appetite. Genitourinary: No dysuria, increased frequency, urgency. No urinary retention. Musculoskeletal: No myalgias. Reports muscle weakness, no gait dysfunction, no frequent falls. No back pain. No neck pain. Integumentary: No wounds, no lesions. No rash or pruritus. No unusual bruising. No change in hair or nails. Neurologic: No aphasia. No facial droop. No change in mentation. No head injury. No headache. No paralysis. No paresthesia. Psychiatric: No depression. No anxiety. No mood swings. Endocrine: No abnormal blood sugars. No weight change. No excessive sweating or thirst. No cold intolerance. SOCIAL HISTORY Patient was a smoker for 1 pack per day for 12 years and quit in the 1970s. He denies any alcohol use. He does not utilize cane or walker. He lives at home with his . FAMILY HISTORY Mother is with history of Alzheimer's dementia. Father is at age 85 with history of coronary artery disease, COPD. Patient has 4 brothers and one has history of Alzheimer's. Patient has 3 sisters and one has from a horse accident. Patient has one son this past with history of lung disease smoking history. Patient's one son and one daughter alive with no major medical problems. PHYSICAL EXAMINATION Gen: This is a thin cachectic appearing 74-year-old male patient. He is resting in bed and appears to be comfortable at rest. HEENT: Head is atraumatic, normocephalic. Pupils equal, round. Sclerae is anicte nam. NECK: Supple. No JVD. No lymphadenopathy. No thyromegaly. LUNGS: Clear to auscultation. No wheezes or rhonchi. No intercostal retractions. HEART: Regular rate and rhythm. No murmur. ABDOMEN: Soft. Bowel sounds are present. No masses. Mild generalized tenderness. EXTREMITIES: No pedal edema. No calf tenderness. NEUROLOGICAL: Patient is awake, alert and oriented x3. Cranial nerves 2 through 12 are grossly intact. ASSESSMENT AND PLAN 1. Neutropenic sepsis. Consult with infectious disease and oncology. Continue cefepime and vancomycin. 2. CBD adenocarcinoma status post Whipple procedure. Consult with oncology. Xeloda on hold. Continue Zenpep for 3 times daily. 3. Lactic acidosis secondary to sepsis, resolved. Continue IV fluids. 4. Hypertension. Continue lisinopril 20 mg daily and Lopressor 50 mg twice daily both with parameters. 5. Diabetes mellitus type 2. Metformin on hold. Patient started on NovoLog insulin scale before meals and at bedtime. 6. History of coronary artery disease status post PCI, stable no complaints of chest pain. 7. Hyperlipidemia. Patient started on statin. 8. Gastroesophageal reflux disease. Continue omeprazole 20 mg twice daily and Carafate 1 g 3 times daily. 9. Severe protein calorie malnutrition secondary to underlying cancer and chemotherapy. BMI 16. Patient started on regular diet and [place] instant breakfast twice daily. 10. DVT prophylaxis. Heparin 5000 units subcu every 12 hours. Patient will be admitted to the hospital for a minimum of 2 night stay. CODE STATUS: Full code per patient's wishes. DISCHARGE PLAN Home. Impression and plan of care have been directed as dictated by the signing physician. Irma Sutton nurse practitioner acting as scribe for signing physician. Past Medical History Past Medical History: Coronary Artery Disease (CAD), Cancer, Chest Pain / Angina, Hyperlipidemia, Hypertension, Myocardial Infarction ([place]) Last Myocardial Infarction Date:: 2000 History of Any Multi-Drug Resistant Organisms: None Reported Past Surgical History: Cholecystectomy, Coronary Bypass/CABG, Heart Catheterization, Heart Catheterization With Stent, Hernia Repair Additional Past Surgical History / Comment(s): whipple procedure Date of Last Stent Placement:: 2000 Past Psychological History: No Psychological Hx Reported Smoking Status: Former smoker Past Alcohol Use History: None Reported Past Drug Use History: None Reported Medications and Allergies Home Medications Medication Instructions Recorded Confirmed Type Capecitabine [Xeloda] 1,500 mg PO DIRECTED 08/29/20 08/29/20 History Enalapril Maleate 5 mg PO BID 08/29/20 08/29/20 History Lipase/Protease/Amylase [Joce Tyson 1 cap PO TID-W/MEALS 08/29/20 08/29/20 History 24,000 Units Capsule] Metoprolol Tartrate [Lopressor] 50 mg PO BID 08/29/20 08/29/20 History Omeprazole 20 mg PO BID 08/29/20 08/29/20 History Ondansetron HCl [Zofran] 4 mg PO Q4H PRN 08/29/20 08/29/20 History Sucralfate [Carafate] 1 gm PO TID 08/29/20 08/29/20 History Tamsulosin HCl [Flomax] 0.4 mg PO DAILY 08/29/20 08/29/20 History metFORMIN HCL 1,000 mg PO BID-W/MEALS 08/29/20 08/29/20 History Allergies Allergy/AdvReac Type Severity Reaction Status Date / Time No Known Allergies Allergy Verified 08/29/20 19:15 Physical Exam Vitals: Vital Signs Temp Pulse Pulse Resp BP BP BP 08/30/20 05:00 97.7 F 65 20 108/62 08/29/20 21:50 98.1 F 67 20 114/65 08/29/20 21:27 81 18 112/67 08/29/20 18:21 99.7 F H 82 18 103/55 08/29/20 16:07 100.7 F H 89 24 132/61 Pulse Ox 08/30/20 05:00 100 08/29/20 21:50 100 08/29/20 21:27 100 08/29/20 18:21 100 08/29/20 16:07 98 Intake and Output 08/29/20 08/30/20 08/30/20 22:59 06:59 14:59 Intake Total 100 100 Balance 100 100 Intake: Oral 100 100 Other: Voiding Method Toilet # Voids 2 Weight 56.245 kg Results CBC & Chem 7: 08/30/20 05:46 08/30/20 05:46 Labs: Abnormal Lab Results - Last 24 Hours (Table) 08/29/20 08/29/20 08/29/20 Range/Units 16:31 16:31 16:31 WBC 3.7 L (3.8-10.6) k/uL RBC 3.61 L (4.30-5.90) m/uL Hgb 11.2 L (13.0-17.5) gm/dL Hct 32.5 L (39.0-53.0) % RDW 16.2 H (11.5-15.5) % Lymphocytes # (Manual) 0.52 L (1.0-4.8) k/uL PT 12.6 H (9.0-12.0) sec INR 1.2 H (<1.2) Sodium 135 L (137-145) mmol/L Chloride (98-107) mmol/L Carbon Dioxide 21 L (22-30) mmol/L BUN 22 H (9-20) mg/dL Glucose 219 H (74-99) mg/dL POC Glucose (mg/dL) (75-99) mg/dL Plasma Lactic Acid Uli (0.7-2.0) mmol/L Calcium (8.4-10.2) mg/dL Total Bilirubin 1.5 H (0.2-1.3) mg/dL AST 112 H (17-59) U/L ALT 90 H (4-49) U/L Alkaline Phosphatase 833 H (38-126) U/L Total Protein 5.4 L (6.3-8.2) g/dL Albumin 2.8 L (3.5-5.0) g/dL Urine Protein (Negative) Urine Glucose (UA) (Negative) 08/29/20 08/29/20 08/29/20 Range/Units 16:31 16:45 22:05 WBC (3.8-10.6) k/uL RBC (4.30-5.90) m/uL Hgb (13.0-17.5) gm/dL Hct (39.0-53.0) % RDW (11.5-15.5) % Lymphocytes # (Manual) (1.0-4.8) k/uL PT (9.0-12.0) sec INR (<1.2) Sodium (137-145) mmol/L Chloride (98-107) mmol/L Carbon Dioxide (22-30) mmol/L BUN (9-20) mg/dL Glucose (74-99) mg/dL POC Glucose (mg/dL) 206 H (75-99) mg/dL Plasma Lactic Acid Uli 4.1 H* (0.7-2.0) mmol/L Calcium (8.4-10.2) mg/dL Total Bilirubin (0.2-1.3) mg/dL AST (17-59) U/L ALT (4-49) U/L Alkaline Phosphatase (38-126) U/L Total Protein (6.3-8.2) g/dL Albumin (3.5-5.0) g/dL Urine Protein Trace H (Negative) Urine Glucose (UA) Trace H (Negative) 08/30/20 08/30/20 Range/Units 05:46 07:29 WBC (3.8-10.6) k/uL RBC (4.30-5.90) m/uL Hgb (13.0-17.5) gm/dL Hct (39.0-53.0) % RDW (11.5-15.5) % Lymphocytes # (Manual) (1.0-4.8) k/uL PT (9.0-12.0) sec INR (<1.2) Sodium (137-145) mmol/L Chloride 109 H (98-107) mmol/L Carbon Dioxide (22-30) mmol/L BUN (9-20) mg/dL Glucose 142 H (74-99) mg/dL POC Glucose (mg/dL) 137 H (75-99) mg/dL Plasma Lactic Acid Uli (0.7-2.0) mmol/L Calcium 8.1 L (8.4-10.2) mg/dL Total Bilirubin (0.2-1.3) mg/dL AST 77 H (17-59) U/L ALT 73 H (4-49) U/L Alkaline Phosphatase 597 H (38-126) U/L Total Protein 4.4 L (6.3-8.2) g/dL Albumin 2.1 L (3.5-5.0) g/dL Urine Protein (Negative) Urine Glucose (UA) (Negative) Thrombosis Risk Factor Assmnt - Choose All That Apply Any of the Below Risk Factors Present?: Yes Each Factor Represents 1 point: Sepsis (< 1month) Each Risk Factor Represents 3 Points: Age 75 years or older Other congenital or acquired thrombophilia - If yes, enter type in comment: No Thrombosis Risk Factor Assessment Total Risk Factor Score: 4 Thrombosis Risk Factor Assessment Level: Moderate Risk
[2020-08-30 16:11] LABS: Reticulocyte % 4.4 % (0.5-2.0)
[2020-08-30 17:34] LABS: Glucose,Whole Blood 160 mg/dL (75-99)
[2020-08-30 20:17] LABS: Glucose,Whole Blood 178 mg/dL (75-99)
[2020-08-30] MEDS: HEPARIN SODIUM,PORCINE/PF 5,000 UNIT/0.5 ML SYRINGE SQ SCH (21:25)
--- NOTE | 2020-08-30 22:39 | P.CONS ---
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 with pancreatic duodenectomy and left node dissection in April 2020 with no evidence of metastatic disease patient recently had been started on chemotherapy and has completed his first chemo cycle on 08/10/2020 patient apparently did have follow- up with oncology clinic and patient was noticed to be febrile with temperature 100.7 F patient mention he has not been feeling that would for the last day or 2 before presentation to the hospital patient denies having any headache or significant URI symptoms patient denies having any chest pain no shortness of breath or cough has been feeling nauseated but no vomiting some vague abdominal pain and did have some diarrhea no burning or frequency of urine on presentation to the hospital patient did have fever 100.7 F patient did have white count of 3.7 creatinine was normal her liver exams were mildly elevated urine was negative thompson PCR was negative patient did have a CT of the abdominal pelvis completed postsurgical changes with ventral carotic atrophy and repair resection of the pancreatic head and air reflux into the biliary tree no dilated duct patient also have a chest x-ray which was negative for acute cardiopulmonary disease and abdominal ultrasound was done, the bile duct none seen no signs of dilatation on intrahepatic bile duct patient has been started on broad-spectrum IV form of cefepime and vancomycin has been admitted to the hospital infectious disease was consulted for further management. Review of Systems Positive point has been mentioned in the HPI rest of the systems are negative Past Medical History Past Medical History: Coronary Artery Disease (CAD), Cancer, Chest Pain / Angina, Hyperlipidemia, Hypertension, Myocardial Infarction ([place]) Last Myocardial Infarction Date:: 2000 History of Any Multi-Drug Resistant Organisms: None Reported Past Surgical History: Cholecystectomy, Coronary Bypass/CABG, Heart Catheterization, Heart Catheterization With Stent, Hernia Repair Additional Past Surgical History / Comment(s): whipple procedure Date of Last Stent Placement:: 2000 Past Psychological History: No Psychological Hx Reported Smoking Status: Former smoker Past Alcohol Use History: None Reported Past Drug Use History: None Reported Medications and Allergies Home Medications Medication Instructions Recorded Confirmed Type Capecitabine [Xeloda] 1,500 mg PO DIRECTED 08/29/20 08/29/20 History Enalapril Maleate 5 mg PO BID 08/29/20 08/29/20 History Lipase/Protease/Amylase [Joce Dr 1 cap PO TID-W/MEALS 08/29/20 08/29/20 History 24,000 Units Capsule] Metoprolol Tartrate [Lopressor] 50 mg PO BID 08/29/20 08/29/20 History Omeprazole 20 mg PO BID 08/29/20 08/29/20 History Ondansetron HCl [Zofran] 4 mg PO Q4H PRN 08/29/20 08/29/20 History Sucralfate [Carafate] 1 gm PO TID 08/29/20 08/29/20 History Tamsulosin HCl [Flomax] 0.4 mg PO DAILY 08/29/20 08/29/20 History metFORMIN HCL 1,000 mg PO BID-W/MEALS 08/29/20 08/29/20 History Allergies Allergy/AdvReac Type Severity Reaction Status Date / Time No Known Allergies Allergy Verified 08/29/20 19:15 Physical Exam Vitals: Vital Signs Temp Pulse Pulse Resp BP BP BP 08/30/20 05:00 97.7 F 65 20 108/62 08/29/20 21:50 98.1 F 67 20 114/65 08/29/20 21:27 81 18 112/67 08/29/20 18:21 99.7 F H 82 18 103/55 08/29/20 16:07 100.7 F H 89 24 132/61 Pulse Ox 08/30/20 05:00 100 08/29/20 21:50 100 08/29/20 21:27 100 08/29/20 18:21 100 08/29/20 16:07 98 Intake and Output 08/29/20 08/30/20 08/30/20 22:59 06:59 14:59 Intake Total 100 100 Balance 100 100 Intake: Oral 100 100 Other: Voiding Method Toilet Toilet # Voids 2 Weight 56.245 kg 56.245 kg GENERAL DESCRIPTION: Elderly male lying in bed, no distress. No tachypnea or accessory muscle of respiration use. HEENT: Shows Pallor , no scleral icterus. Oral mucous membrane is dry. No pharyngeal erythema or thrush NECK: Trachea central, no thyromegaly. LUNGS: Unlabored breathing. Clear to auscultation anteriorly. No wheeze or crackle. HEART: S1, S2, regular rate and rhythm. No loud murmur ABDOMEN: Soft, no tenderness , guarding or rigidity, no organomegaly EXTREMITIES: No edema of feet. SKIN: No rash, no masses palpable. NEUROLOGICAL: The patient is awake, alert, oriented x3, mood and affect normal. Results CBC & Chem 7: 08/30/20 05:46 08/30/20 05:46 Labs: Abnormal Lab Results - Last 24 Hours (Table) 08/29/20 08/29/20 08/29/20 Range/Units 16:31 16:31 16:31 WBC 3.7 L (3.8-10.6) k/uL RBC 3.61 L (4.30-5.90) m/uL Hgb 11.2 L (13.0-17.5) gm/dL Hct 32.5 L (39.0-53.0) % RDW 16.2 H (11.5-15.5) % Lymphocytes # (Manual) 0.52 L (1.0-4.8) k/uL PT 12.6 H (9.0-12.0) sec INR 1.2 H (<1.2) Sodium 135 L (137-145) mmol/L Chloride (98-107) mmol/L Carbon Dioxide 21 L (22-30) mmol/L BUN 22 H (9-20) mg/dL Glucose 219 H (74-99) mg/dL POC Glucose (mg/dL) (75-99) mg/dL Plasma Lactic Acid Uli (0.7-2.0) mmol/L Calcium (8.4-10.2) mg/dL Total Bilirubin 1.5 H (0.2-1.3) mg/dL AST 112 H (17-59) U/L ALT 90 H (4-49) U/L Alkaline Phosphatase 833 H (38-126) U/L Total Protein 5.4 L (6.3-8.2) g/dL Albumin 2.8 L (3.5-5.0) g/dL Urine Protein (Negative) Urine Glucose (UA) (Negative) 08/29/20 08/29/20 08/29/20 Range/Units 16:31 16:45 22:05 WBC (3.8-10.6) k/uL RBC (4.30-5.90) m/uL Hgb (13.0-17.5) gm/dL Hct (39.0-53.0) % RDW (11.5-15.5) % Lymphocytes # (Manual) (1.0-4.8) k/uL PT (9.0-12.0) sec INR (<1.2) Sodium (137-145) mmol/L Chloride (98-107) mmol/L Carbon Dioxide (22-30) mmol/L BUN (9-20) mg/dL Glucose (74-99) mg/dL POC Glucose (mg/dL) 206 H (75-99) mg/dL Plasma Lactic Acid Uli 4.1 H* (0.7-2.0) mmol/L Calcium (8.4-10.2) mg/dL Total Bilirubin (0.2-1.3) mg/dL AST (17-59) U/L ALT (4-49) U/L Alkaline Phosphatase (38-126) U/L Total Protein (6.3-8.2) g/dL Albumin (3.5-5.0) g/dL Urine Protein Trace H (Negative) Urine Glucose (UA) Trace H (Negative) 08/30/20 08/30/20 08/30/20 Range/Units 05:46 05:46 07:29 WBC 2.9 L (3.8-10.6) k/uL RBC 3.11 L (4.30-5.90) m/uL Hgb 9.3 L D (13.0-17.5) gm/dL Hct 28.9 L (39.0-53.0) % RDW 16.7 H (11.5-15.5) % Lymphocytes # (Manual) (1.0-4.8) k/uL PT (9.0-12.0) sec INR (<1.2) Sodium (137-145) mmol/L Chloride 109 H (98-107) mmol/L Carbon Dioxide (22-30) mmol/L BUN (9-20) mg/dL Glucose 142 H (74-99) mg/dL POC Glucose (mg/dL) 137 H (75-99) mg/dL Plasma Lactic Acid Uli (0.7-2.0) mmol/L Calcium 8.1 L (8.4-10.2) mg/dL Total Bilirubin (0.2-1.3) mg/dL AST 77 H (17-59) U/L ALT 73 H (4-49) U/L Alkaline Phosphatase 597 H (38-126) U/L Total Protein 4.4 L (6.3-8.2) g/dL Albumin 2.1 L (3.5-5.0) g/dL Urine Protein (Negative) Urine Glucose (UA) (Negative) Assessment and Plan Assessment: patient presented to hospital with fever weakness in this patient who did have a history of adenocarcinoma of the common bile duct status post extensive surgery and this patient has completed his first chemotherapy patient did have mild GI symptoms however CT abdominal pelvis did not show any acute abnormality patient chest x-ray was negative urine is negative and had no obvious focus of infection on current examination with history of adenocarcinoma and recent surgery and possible cholangitis will be the likely source of his fever and likely from enteric gram-negative pathogen (1) Fever Current Visit: Yes Status: Acute Code(s): R50.9 - FEVER, UNSPECIFIED SNO MED Code(s): 421445403 Plan: 1-cefepime 2 g every 8 hours to continue along with vancomycin 2-gentle IV fluid We will follow on clinical condition and cultures to further adjust medication if needed Thank you for this consultation we will follow the patient along with you Time with Patient: Greater than 30
[2020-08-31] MEDS: CEFEPIME 2 GM in SODIUM CHLORIDE 0.9% 100 ML IVPB SCH ×3 (00:11→15:54)
[2020-08-31] MEDS ORDERED: VANCOMYCIN TROUGH DUE 1 EACH MISC MISCELLANE ONE (05:00)
[2020-08-31] MEDS: VANCOMYCIN 1,000 MG in SODIUM CHLORIDE 0.9% 250 ML IVPB SCH (05:53)
[2020-08-31 06:00] LABS: Anisocytosis Slight; HCT 29.9 % (39.0-53.0); HGB 9.4 gm/dL (13.0-17.5); MCH 28.8 pg (25.0-35.0); MCHC 31.4 g/dL (31.0-37.0); MCV 91.7 fL (80.0-100.0); Mean Platelet Volume 7.7; Platelet Count 349 k/uL (150-450); RBC 3.26 m/uL (4.30-5.90); RDW 16.8 % (11.5-15.5); WBC 2.7 k/uL (3.8-10.6)
[2020-08-31 06:31] LABS: ALT 48 U/L (4-49); AST 45 U/L (17-59); African American GFR (CKD) >90 (>60 ml/min/1.73 sqM); Albumin/Globulin Ratio 0.9; Alkaline Phosphatase 559 U/L (38-126); Anion Gap 2 mmol/L; Blood Urea Nitrogen 11 mg/dL (9-20); Calcium 7.6 mg/dL (8.4-10.2); Carbon Dioxide 28 mmol/L (22-30); Chloride 108 mmol/L (98-107); Globulin 2.2 g/dL; Glucose 186 mg/dL (74-99); Non-African American GFR(CKD) >90 (>60 ml/min/1.73 sqM); Potassium 3.4 mmol/L (3.5-5.1); Sodium 138 mmol/L (137-145); Total Bilirubin 0.4 mg/dL (0.2-1.3); Total Protein 4.2 g/dL (6.3-8.2)
[2020-08-31 06:58] LABS: Glucose,Whole Blood 184 mg/dL (75-99)
[2020-08-31 07:08] LABS: Ferritin 412.8 ng/mL (22.0-322.0)
[2020-08-31 07:41] LABS: Eosinophils # (M) 0.05 k/uL (0-0.7); Monocytes # (M) 0.43 k/uL (0-1.0); Neutrophils # (M) 1.51 k/uL (1.3-7.7); Neutrophils % (M) 56 %; Nucleated Red Blood Cells 0 /100 WBC (0-0); Total Cells Counted 100
[2020-08-31 07:42] LABS: Poikilocytosis (M) Present
[2020-08-31] MEDS: LIPASE 5,000/PROTEASE 17,000/AMYLASE 24,000 PO SCH ×3 (08:14→18:02)
[2020-08-31] MEDS: INSULIN ASPART (NovoLOG) 100 UNIT/ML VIAL SQ SCH ×4 (08:14→21:38)
[2020-08-31] MEDS: lisinopriL 20 MG TAB PO SCH (08:15)
[2020-08-31] MEDS: PANTOPRAZOLE 40 MG TABLET PO SCH ×2 (08:15→21:38)
[2020-08-31] MEDS: HEPARIN SODIUM,PORCINE/PF 5,000 UNIT/0.5 ML SYRINGE SQ SCH ×2 (08:15→21:38)
[2020-08-31] MEDS: SUCRALFATE 1 GM TAB PO SCH ×3 (08:15→21:38)
[2020-08-31] MEDS: TAMSULOSIN 0.4 MG CAP.ER.24H PO SCH (08:15)
[2020-08-31] MEDS: METOPROLOL TARTRATE 50 MG TAB PO SCH ×2 (08:15→21:38)
[2020-08-31] MEDS: MINERAL OIL-WHITE PETROLATUM 120 GM JAR TOPICAL SCH ×2 (08:16→21:39)
[2020-08-31] MEDS ORDERED: POTASSIUM CHLORIDE ER 20 MEQ TAB.ER PO STA (08:17)
[2020-08-31 11:57] LABS: Glucose,Whole Blood 215 mg/dL (75-99)
--- NOTE | 2020-08-31 14:19 | CDI ---
Documentation Clarification Form Date: 08/31/2020 02:11:02 PM From: Rand Barahona CCS, CCDS Admit Date: 08/29/2020 06:46:00 PM Patient Name: Lan Mcarthur Visit Number: [id number] Discharge Date: ATTENTION: The Clinical Documentation Specialists (CDI) and [facility] Coding Staff appreciate your assistance in clarifying documentation. Please respond to the clarification below the line at the bottom and electronically sign. The CDI & [facility] Coding staff will review the response and follow-up if needed. Please note: Queries are made part of the Legal Health Record. If you have any questions, please contact the author of this message via ITS. Dr. Asia Maria: Normocytic Anemia is documented in the 08/29 ED Note without further specificity. Additional specificity regarding the [type, acuity] of anemia is requested. History/Risk Factors per the 08/30 H/P: CBD Adenocarcinoma status post Whipple Procedure with pancreatic or duodenectomy & retroperitoneal lymph node dissection in April/2020 status post one cycle of Chemotherapy and status post 14 days of Xeloda. Chronic abdominal pain & diarrhea, CAD & SD status post PCI, Hypertension, Hyperlipidemia, Former smoker. Clinical indicators: Presented to the ED on 08/29 with fever, nausea & abdominal pain, feels dehydrated. ED Clinical Impression: Sepsis, Leukopenia, (SIRS), Fever of unknown origin, Cholangiocarcinoma Hemoglobin 08/29: 11.2; 08/30: 9.3; 08/31: 9.4: Hematocrit 08/29: 32.5; 08/30: 28.9; 08/31: 29.9 Treatment: IV Cefepime, IV Vancomycin, Xeloda on hold, Zenpep continued, IV fluids, Lisinopril & Lopressor, Metformin on hold, Started Insulin sliding scale, Started on Statin, IV Zofran & po Carafate, Regular Diet & Dandridge Instant Breakfast BID, Heparin sq q12. Please clarify the type and acuity of anemia, if known: [ ] Chronic blood loss anemia [ ] Iron deficiency anemia [ ] Hemolytic anemia [ ] Drug induced anemia [ ] Anemia due to malignancy [ ] Nutritional anemia [ ] Unable to determine [ X ] Other, please specify _bone marrow suppression, anaemia of chronic disease (Template Last Revised: March 2020) MTDD
[2020-08-31 17:38] LABS: Glucose,Whole Blood 96 mg/dL (75-99)
[2020-08-31] MEDS ORDERED: VANCOMYCIN 1,250 MG in SODIUM CHLORIDE 0.9% 250 ML IVPB SCH (18:00)
--- NOTE | 2020-08-31 18:39 | PN ---
PROGRESS NOTE DATE OF SERVICE: 08/31/2020 REASON FOR FOLLOWUP: Fever. INTERVAL HISTORY: Patient is afebrile. The patient is feeling better. Breathing comfortably. Patient denies having any chest pain, shortness of breath or cough. Denies any abdominal pain or diarrhea. PHYSICAL EXAMINATION: Blood pressure 128/56, pulse of 58, temperature 98.2. He is 98% on room air. General description is an elderly male lying in bed in no distress. Respiratory system: Unlabored breathing, clear to auscultation anteriorly. Heart S1, S2. Regular rate and rhythm. Abdomen soft. No tenderness. LABS: Hemoglobin is 9.4, white count 2.7, BUN of 11, creatinine 0.66. DIAGNOSTIC IMPRESSION AND PLAN: Patient admitted to the hospital with a fever in this patient who recently received chemo for the cholangiocarcinoma. Workup so far is negative. Cultures are pending. Concern for possible cholangitis likely the source of his fever, responded to the cefepime. Will continue. We will discontinue the vancomycin and if the patient continues to improve to finish therapy with oral antibiotics. Continue supportive care. MMODL / IJN: [id number] /
--- NOTE | 2020-08-31 19:18 | P.PN ---
Subjective Progress Note Date: 08/31/20 Principal diagnosis: Fever and Cholangiocarcinoma on chemo Up in chair, feeling better, remains afebrile Objective - Vital Signs Vital signs: Vital Signs Temp 98.2 F 08/31/20 12:53 Pulse 58 L 08/31/20 12:53 Resp 17 08/31/20 12:53 BP 128/66 08/31/20 12:53 Pulse Ox 98 08/31/20 12:53 Intake & Output 08/31/20 08/31/20 09/01/20 06:59 18:59 06:59 Intake Total 500 610 Balance 500 610 Intake: Intake, IV Titration 150 Amount Cefepime 2 gm In Sodium 150 Chloride 0.9% 100 ml @ 25 mls/hr IVPB Q8HR [facility] Rx# :[id number] Oral 500 460 Other: Voiding Method Toilet # Voids 3 2 - Exam - Constitutional General appearance: cooperative, no acute distress - EENT Dry mucus membraines, Lesions healing to lips (herpetic) Eyes: EOMI ENT: hard of hearing - Neck Neck: normal ROM - Respiratory Respiratory: bilateral: diminished - Cardiovascular Rhythm: regularly irregular - Gastrointestinal General gastrointestinal: soft, tenderness - Integumentary Integumentary: pale - Neurologic Neurologic: CNII-XII intact - Musculoskeletal Musculoskeletal: generalized weakness - Psychiatric Psychiatric: A&O x's 3, appropriate affect, intact judgment & insight - Labs CBC & Chem 7: 08/31/20 05:12 08/31/20 05:12 Labs: Abnormal Lab Results - Last 24 Hours (Table) 08/30/20 08/30/20 08/31/20 Range/Units 16:01 20:15 05:12 WBC 2.7 L (3.8-10.6) k/uL RBC 3.26 L (4.30-5.90) m/uL Hgb 9.4 L (13.0-17.5) gm/dL Hct 29.9 L (39.0-53.0) % RDW 16.8 H (11.5-15.5) % Lymphocytes # (Manual) 0.70 L (1.0-4.8) k/uL Potassium (3.5-5.1) mmol/L Chloride (98-107) mmol/L Glucose (74-99) mg/dL POC Glucose (mg/dL) 178 H (75-99) mg/dL Calcium (8.4-10.2) mg/dL Iron 45 L (65-175) ug/dL TIBC 180 L (228-460) ug/dL Ferritin 412.8 H (22.0-322.0) ng/mL Alkaline Phosphatase (38-126) U/L Total Protein (6.3-8.2) g/dL Albumin (3.5-5.0) g/dL 08/31/20 08/31/20 08/31/20 Range/Units 05:12 06:57 11:56 WBC (3.8-10.6) k/uL RBC (4.30-5.90) m/uL Hgb (13.0-17.5) gm/dL Hct (39.0-53.0) % RDW (11.5-15.5) % Lymphocytes # (Manual) (1.0-4.8) k/uL Potassium 3.4 L (3.5-5.1) mmol/L Chloride 108 H (98-107) mmol/L Glucose 186 H (74-99) mg/dL POC Glucose (mg/dL) 184 H 215 H (75-99) mg/dL Calcium 7.6 L (8.4-10.2) mg/dL Iron (65-175) ug/dL TIBC (228-460) ug/dL Ferritin (22.0-322.0) ng/mL Alkaline Phosphatase 559 H (38-126) U/L Total Protein 4.2 L (6.3-8.2) g/dL Albumin 2.0 L (3.5-5.0) g/dL Microbiology - Last 24 Hours (Table) 08/29/20 16:31 Blood Culture - Preliminary Blood No Growth after 48 hours 08/30/20 16:01 Blood Culture - Preliminary Blood No Growth after 24 hours 08/30/20 18:24 Stool Culture - Preliminary Stool Assessment and Plan (1) Cholangiocarcinoma Current Visit: Yes Status: Acute Code(s): C22.1 - INTRAHEPATIC BILE DUCT CARCINOMA SNOMED Code(s): 180562571 (2) Fever Current Visit: Yes Status: Acute Code(s): R50.9 - FEVER, UNSPECIFIED SNOMED Code(s): 261010709 (3) Systemic inflammatory response syndrome (SIRS) Current Visit: Yes Status: Acute Code(s): R65.10 - SIRS OF NON-INFECTIOUS ORIGIN W/O ACUTE ORGAN DYSFUNCTION SNOMED Code(s): 025688101 Plan: Plan: - Hold Chemo until resolution of above - Await kohler cultures and continue abx Kohler cultures negative to date and afebrile 24-48 hours Hold chemo this week and will be seen in office prior to resuming Add PT and in chair daily Add Urea 40% cream hands and feet BID COntinue and re-inforced Incentive Spirometer DIscussed oral mouth care
[2020-08-31 20:08] LABS: Glucose,Whole Blood 174 mg/dL (75-99)
[2020-09-01] MEDS: CEFEPIME 2 GM in SODIUM CHLORIDE 0.9% 100 ML IVPB SCH ×2 (00:50→07:56)
[2020-09-01 04:49] VITALS: BP 117/57; PULSE 58; RESP 16; TEMP 98.3
[2020-09-01 06:49] LABS: Glucose,Whole Blood 134 mg/dL (75-99)
[2020-09-01] MEDS: INSULIN ASPART (NovoLOG) 100 UNIT/ML VIAL SQ SCH (07:54)
[2020-09-01] MEDS: METOPROLOL TARTRATE 50 MG TAB PO SCH (07:55)
[2020-09-01] MEDS: PANTOPRAZOLE 40 MG TABLET PO SCH (07:55)
[2020-09-01] MEDS: lisinopriL 20 MG TAB PO SCH (07:55)
[2020-09-01] MEDS: TAMSULOSIN 0.4 MG CAP.ER.24H PO SCH (07:55)
[2020-09-01] MEDS: LIPASE 5,000/PROTEASE 17,000/AMYLASE 24,000 PO SCH (07:56)
[2020-09-01] MEDS: SUCRALFATE 1 GM TAB PO SCH (07:57)
[2020-09-01] MEDS: HEPARIN SODIUM,PORCINE/PF 5,000 UNIT/0.5 ML SYRINGE SQ SCH (07:57)
[2020-09-01] MEDS: MINERAL OIL-WHITE PETROLATUM 120 GM JAR TOPICAL SCH (08:28)
--- NOTE | 2020-09-01 09:31 | P.DS ---
Providers Date of admission: 08/29/20 18:46 Expected date of discharge: 09/01/20 Attending physician: Asia Maria MD Consults: 08/29/20 18:46 Consult Physician Stat Consulting Provider: Nicholas Null Consult Reason/Comments: Chemo patient, sepsis Do you want consulting provider notified?: Already Contacted Consult Physician Stat Consulting Provider: Adwoa Gallagher Consult Reason/Comments: Sepsis, chemo patient Do you want consulting provider notified?: Already Contacted [facility]: HISTORY OF PRESENT ILLNESS This is a 74-year-old male patient of Dr. Avelar with past history of myocardial infarction in 2000 with coronary artery disease status post PCI, hypertension, hyperlipidemia, history of CBD adenocarcinoma status post Whipple procedure with pancreatic or duodenectomy and retroperitoneal lymph node dissection on April 2020. No evidence of metastatic disease. Patient is status one cycle of gemc itabine and oxaliplatin in 08/10/20 and status post 14 days of Xeloda completed yesterday and cycle 1 of Gemzar patient states that he has had 3 days of fever but has been on and off since July. He complains of chronic abdominal pain. He states he has diarrhea on and off. He denies any black stool or bloody stool. He denies any palpitations or back pain. No dizziness. No seizure activity. At the time of evaluation, patient denies any nausea today. Patient presented to the clinic [facility] emergency center and found to have temperature max 100.7, heart rate 89, saturating rate 24, blood pressure 132/61, pulse ox 90% on room air. EKG was a sinus rhythm with no acute ST changes. WBC 3.7, hemoglobin 11.2, platelet count 340. Sodium 135, potassium 4.1, chloride 104, CO2 21, BUN 22 creatinine 0.75. Blood sugar 218. INR 1.2. Magnesium 1.6. Total bilirubin 1.5, AST 112, ALT 90, alkaline phosphatase 833. Albumin 2.8. Lactic acid 4.1 with repeat of 1.4. Urinalysis clear with nitrate and leukoesterase negative. Influenza, RSV, COVID-19 not detected. CAT scan of the abdomen and pelvis with contrast revealed postop changes with pancreatic atrophy and apparent resection of pancreatic head and air reflux into the biliary tree. Surgery at the gastric antrum. Cholecystectomy. No dilated ducts. No sign of recurrent tumor. Sigmoid diverticulosis. Normal appendix. No bowel obstruction. Chest x-ray reveals no active cardiopulmonary disease. Normal heart. Abdominal ultrasound revealed common bile duct not seen. No sign of dilation of the intrahepatic bile ducts. No focal liver defect. Patient has been admitted to the [facility] floor, consult with oncology and infectious disease. For now patient is continued on vancomycin and cefepime until seen by infectious disease. 08/31: Potassium today is at 3.4 will be replaced. Patient states he still has some nausea but improving and his general is feeling better. He has been afebrile, heart rate 58, blood pressure 128/66, pulse ox 98% on room air. WBC 2.7, hemoglobin 9.4, platelet count 349. Sodium 138, potassium 3.4, chloride 108, CO2 28, BUN 11 creatinine 0.66. Blood sugar 186. Oncology is holding c hemotherapy this week and will be seen in the office prior to resuming.. 09/01: Patient states he is feeling good nausea is better. He states he had a normal bowel movement this morning and about an hour later had a loose stool. Patient will be started on Questran. Dr. Gallagher's rest recommended Ceftin 500 mg twice daily for 7 day course at discharge. He has been afebrile, heart rate 58, blood pressure 117/57, pulse ox 99% on room air. Patient will be discharged home today in stable condition. REVIEW OF SYSTEMS Constitutional: Reports fever,Reports chills, no night sweats. Reports weight change. Reports weakness, Reports fatigue no lethargy. No daytime sleepiness. EENT: No headache. No blurred vision or double vision, no loss of vision. No loss of Hearing, no ringing in the ears, no dizziness. No nasal drainage or congestion. No epistaxis. No sore throat. Lungs: No shortness of breath, cough, no sputum production. No wheezing. Cardiovascular: No chest pain, no lower extremity edema. No palpitations. No paroxysmal nocturnal dyspnea. No orthopnea. No lightheadedness or dizziness. No syncopal episodes. Abdominal: Reports abdominal pain. Reports nausea, no vomiting. No diarrhea. No constipation. No bloody or tarry stools. Reports loss of appetite. Genitourinary: No dysuria, increased frequency, urgency. No urinary retention. Musculoskeletal: No myalgias. Reports muscle weakness, no gait dysfunction, no frequent falls. No back pain. No neck pain. Integumentary: No wounds, no lesions. No rash or pruritus. No unusual bruising. No change in hair or nails. Neurologic: No aphasia. No facial droop. No change in mentation. No head injury. No headache. No paralysis. No paresthesia. Psychiatric: No depression. No anxiety. No mood swings. Endocrine: No abnormal blood sugars. No weight change. No excessive sweating or thirst. No cold intolerance. PHYSICAL EXAMINATION Gen: This is a thin cachectic appearing 74-year-old male patient. He is resting in bed and appears to be comfortable at rest. HEENT: Head is atraumatic, normocephalic. Pupils equal, round. Sclerae is anicteric. NECK: Supple. No JVD. No lymphadenopathy. No thyromegaly. LUNGS: Clear to auscultation. No wheezes or rhonchi. No intercostal retractions. HEART: Regular rate and rhythm. No murmur. ABDOMEN: Soft. Bowel sounds are present. No masses. Mild generalized tenderness. EXTREMITIES: No pedal edema. No calf tenderness. NEUROLOGICAL: Patient is awake, alert and oriented x3. Cranial nerves 2 through 12 are grossly intact. ASSESSMENT AND PLAN 1. Neutropenic sepsis. 2. CBD adenocarcinoma status post Whipple procedure. 3. Lactic acidosis secondary to sepsis, resolved. 4. Hypertension. 5. Diabetes mellitus type 2. 6. History of coronary artery disease status post PCI, stable. 7. Hyperlipidemia. 8. Gastroesophageal reflux disease. 9. Severe protein calorie malnutrition secondary to underlying cancer and chemotherapy. BMI 16. DISCHARGE PLAN Home. Impression and plan of care have been directed as dictated by the signing physician. Irma Sutton nurse practitioner acting as scribe for signing physician. Patient Condition at Discharge: Good Plan - Discharge Summary New Discharge Prescriptions: New Cefuroxime Axetil [Ceftin] 500 mg PO BID 7 Days #14 tab Cholestyramine (with Sugar) [Questran] 4 gm PO BID PRN #30 packet PRN Reason: Diarrhea Continue Sucralfate [Carafate] 1 gm PO TID metFORMIN HCL 1,000 mg PO BID-W/MEALS Omeprazole 20 mg PO BID Lipase/Protease/Amylase [Creon Dr 24,000 Units Capsule] 1 cap PO TID-W/MEALS Enalapril Maleate 5 mg PO BID Ondansetron HCl [Zofran] 4 mg PO Q4H PRN PRN Reason: Nausea And Vomiting Metoprolol Tartrate [Lopressor] 50 mg PO BID Capecitabine [Xeloda] 1,500 mg PO DIRECTED Tamsulosin HCl [Flomax] 0.4 mg PO DAILY Discharge Medication List Capecitabine [Xeloda] 1,500 mg PO DIRECTED 08/29/20 [History] Enalapril Maleate 5 mg PO BID 08/29/20 [History] Lipase/Protease/Amylase [Joce Tyson 24,000 Units Capsule] 1 cap PO TID-W/MEALS 08/29/20 [History] Metoprolol Tartrate [Lopressor] 50 mg PO BID 08/29/20 [History] Omeprazole 20 mg PO BID 08/29/20 [History] Ondansetron HCl [Zofran] 4 mg PO Q4H PRN 08/29/20 [History] Sucralfate [Carafate] 1 gm PO TID 08/29/20 [History] Tamsulosin HCl [Flomax] 0.4 mg PO DAILY 08/29/20 [History] metFORMIN HCL 1,000 mg PO BID-W/MEALS 08/29/20 [History] Cefuroxime Axetil [Ceftin] 500 mg PO BID 7 Days #14 tab 09/01/20 [Rx] Cholestyramine (with Sugar) [Questran] 4 gm PO BID PRN #30 packet 09/01/20 [Rx] Follow up Appointment(s)/Referral(s): Marlon Avelar MD [Primary Care Provider] - 09/08/20 10:30 am Patient Instructions/Handouts: Fever in Adults (GEN) Discharge Disposition: HOME SELF-CARE
[2020-09-01 11:09] LABS: Glucose,Whole Blood 143 mg/dL (75-99)
--- NOTE | 2020-09-01 12:34 | P.PN ---
Progress Note - Text Progress Note Date: 09/01/20 REASON FOR FOLLOWUP: Fever. INTERVAL HISTORY: Patient remains to be afebrile. The patient is feeling better. The patient is breathing comfortably. Patient denies having any chest pain, shortness of breath or cough. Denies any abdominal pain or diarrhea. PHYSICAL EXAMINATION: Blood pressure 120/50, pulse of 60 , temperature 98.2. He is 98% on room air. General description is an elderly male lying in bed in no distress. Respiratory system: Unlabored breathing, clear to auscultation anteriorly. Heart S1, S2. Regular rate and rhythm. Abdomen soft. No tenderness. LABS: Cultures remains to be negative. DIAGNOSTIC IMPRESSION AND PLAN: Patient admitted to the hospital with a fever in this patient who recently received chemo for the cholangiocarcinoma. Workup so far is negative. Cultures has been negative so far. Concern for possible cholangitis likely the source of his fever, responded to the cefepime. Will finish therapy with short course of oral Ceftin and a close outpatient follow-up, discussed with the nurse petitioner working on discharge
--- NOTE | 2020-09-01 13:26 | P.PN ---
Subjective Progress Note Date: 08/31/20 HISTORY OF PRESENT ILLNESS This is a 74-year-old male patient of Dr. Avelar with past history of myocardial infarction in 2000 with coronary artery disease status post PCI, hypertension, hyperlipidemia, history of CBD adenocarcinoma status post Whipple procedure with pancreatic or duodenectomy and retroperitoneal lymph node dissection on April 2020. No evidence of metastatic disease. Patient is status one cycle of gemcitabine and oxaliplatin in 08/10/20 and status post 14 days of Xeloda completed yesterday and cycle 1 of Gemzar patient states that he has had 3 days of fever but has been on and off since July. He complains of chronic abdominal pain. He states he has diarrhea on and off. He denies any black stool or bloody stool. He denies any palpitations or back pain. No dizziness. No seizure activity. At the time of evaluation, patient denies any nausea today. Patient presented to the clinic [facility] emergency center and found to have temperature max 100.7, heart rate 89, saturating rate 24, blood pressure 132/61, pulse ox 90% on room air. EKG was a sinus rhythm with no acute ST changes. WBC 3.7, hemoglobin 11.2, platelet count 340. Sodium 135, potassium 4.1, chloride 104, CO2 21, BUN 22 creatinine 0.75. Blood sugar 218. INR 1.2. Magnesium 1.6. Total bilirubin 1.5, AST 112, ALT 90, alkaline phosphatase 833. Albumin 2.8. Lactic acid 4.1 with repeat of 1.4. Urinalysis clear with nitrate and leukoesterase negative. Influenza, RSV, COVID-19 not detected. CAT scan of the abdomen and pelvis with contrast revealed postop changes with pancreatic atrophy and apparent resection of pancreatic head and air reflux into the biliary tree. Surgery at the gastric antrum. Cholecystectomy. No dilated ducts. No sign of recurrent tumor. Sigmoid diverticulosis. Normal appendix. No bowel obstruction. Chest x-ray reveals no active cardiopulmonary disease. Normal heart. Abdominal ultrasound revealed common bile duct not seen. No sign of dilation of the intrahepatic bile ducts. No focal liver defect. Patient has been admitted to the [facility] floor, consult with oncology and infectious disease. For now patient is continued on vancomycin and cefepime until seen by infectious disease. 08/31: Potassium today is at 3.4 will be replaced. Patient states he still has some nausea but improving and his general is feeling better. He has been afebrile, heart rate 58, blood pressure 128/66, pulse ox 98% on room air. WBC 2.7, hemoglobin 9.4, platelet count 349. Sodium 138, potassium 3.4, chloride 108, CO2 28, BUN 11 creatinine 0.66. Blood sugar 186. Oncology is holding chemotherapy this week and will be seen in the office prior to resuming.. REVIEW OF SYSTEMS Constitutional: Reports fever,Reports chills, no night sweats. Reports weight change. Reports weakness, Reports fatigue no lethargy. No daytime sleepiness. EENT: No headache. No blurred vision or double vision, no loss of vision. No loss of Hearing, no ringing in the ears, no dizziness. No nasal drainage or congestion. No epistaxis. No sore throat. Lungs: No shortness of breath, cough, no sputum production. No wheezing. Cardiovascular: No chest pain, no lower extremity edema. No palpitations. No paroxysmal nocturnal dyspnea. No orthopnea. No lightheadedness or dizziness. No syncopal episodes. Abdominal: Reports abdominal pain. Reports nausea, no vomiting. No diarrhea. No constipation. No bloody or tarry stools. Reports loss of appetite. Genitourinary: No dysuria, increased frequency, urgency. No urinary retention. Musculoskeletal: No myalgias. Reports muscle weakness, no gait dysfunction, no frequent falls. No back pain. No neck pain. Integumentary: No wounds, no lesions. No rash or pruritus. No unusual bruising. No change in hair or nails. Neurologic: No aphasia. No facial droop. No change in mentation. No head injury. No headache. No paralysis. No paresthesia. Psychiatric: No depression. No anxiety. No mood swings. Endocrine: No abnormal blood sugars. No weight change. No excessive sweating or thirst. No cold intolerance. PHYSICAL EXAMINATION Gen: This is a thin cachectic appearing 74-year-old male patient. He is resting in bed and appears to be comfortable at rest. HEENT: Head is atraumatic, normocephalic. Pupils equal, round. Sclerae is anicteric. NECK: Supple. No JVD. No lymphadenopathy. No thyromegaly. LUNGS: Clear to auscultation. No wheezes or rhonchi. No intercostal retractions. HEART: Regular rate and rhythm. No murmur. ABDOMEN: Soft. Bowel sounds are present. No masses. Mild generalized tenderness. EXTREMITIES: No pedal edema. No calf tenderness. NEUROLOGICAL: Patient is awake, alert and oriented x3. Cranial nerves 2 through 12 are grossly intact. ASSESSMENT AND PLAN 1. Neutropenic sepsis. Consult with infectious disease and oncology appreciated. Continue cefepime and vancomycin. 2. CBD adenocarcinoma status post Whipple procedure. Consult with oncology. Xeloda on hold. Continue Zenpep for 3 times daily. 3. Lactic acidosis secondary to sepsis, resolved. Continue IV fluids. 4. Hypertension. Continue lisinopril 20 mg daily and Lopressor 50 mg twice daily both with parameters. 5. Diabetes mellitus type 2. Metformin on hold. Patient started on NovoLog insulin scale before meals and at bedtime. 6. History of coronary artery disease status post PCI, stable no complaints of chest pain. 7. Hyperlipidemia. Patient started on statin. 8. Gastroesophageal reflux disease. Continue omeprazole 20 mg twice daily and Carafate 1 g 3 times daily. 9. Severe protein calorie malnutrition secondary to underlying cancer and chemotherapy. BMI 16. Patient started on regular diet and Seco instant breakfast twice daily. 10. DVT prophylaxis. Heparin 5000 units subcu every 12 hours. CODE STATUS: Full code per patient's wishes. DISCHARGE PLAN Home. Impression and plan of care have been directed as dictated by the signing physician. Irma Sutton nurse practitioner acting as scribe for signing physician. Objective - Vital Signs Vital signs: Vital Signs Temp 98.3 F 08/31/20 02:00 Pulse 58 L 08/31/20 02:00 Resp 16 08/31/20 02:00 BP 110/59 08/31/20 02:00 Pulse Ox 98 08/31/20 02:00 Intake & Output 08/30/20 08/31/20 08/31/20 18:59 06:59 18:59 Intake Total 200 500 Balance 200 500 Weight 56.245 kg Intake: Intake, IV Titration 200 Amount Cefepime 2 gm In Sodium 200 Chloride 0.9% 100 ml @ 25 mls/hr IVPB Q8HR [facility] Rx# :[id number] Oral 500 Other: Voiding Method Toilet Toilet # Voids 3 - Labs CBC & Chem 7: 08/31/20 05:12 08/31/20 05:12 Labs: Abnormal Lab Results - Last 24 Hours (Table) 08/30/20 08/30/20 08/30/20 Range/Units 05:46 05:46 12:37 WBC 2.9 L (3.8-10.6) k/uL RBC 3.11 L (4.30-5.90) m/uL Hgb 9.3 L D (13.0-17.5) gm/dL Hct 28.9 L (39.0-53.0) % RDW 16.7 H (11.5-15.5) % Lymphocytes # (Manual) (1.0-4.8) k/uL Retic Count (0.5-2.0) % Potassium (3.5-5.1) mmol/L Chloride 109 H (98-107) mmol/L Glucose 142 H (74-99) mg/dL POC Glucose (mg/dL) 191 H (75-99) mg/dL Calcium 8.1 L (8.4-10.2) mg/dL Iron (65-175) ug/dL TIBC (228-460) ug/dL Ferritin (22.0-322.0) ng/mL AST 77 H (17-59) U/L ALT 73 H (4-49) U/L Alkaline Phosphatase 597 H (38-126) U/L Total Protein 4.4 L (6.3-8.2) g/dL Albumin 2.1 L (3.5-5.0) g/dL 08/30/20 08/30/20 08/30/20 Range/Units 16:01 16:01 17:32 WBC (3.8-10.6) k/uL RBC (4.30-5.90) m/uL Hgb (13.0-17.5) gm/dL Hct (39.0-53.0) % RDW (11.5-15.5) % Lymphocytes # (Manual) (1.0-4.8) k/uL Retic Count 4.4 H (0.5-2.0) % Potassium (3.5-5.1) mmol/L Chloride (98-107) mmol/L Glucose (74-99) mg/dL POC Glucose (mg/dL) 160 H (75-99) mg/dL Calcium (8.4-10.2) mg/dL Iron 45 L (65-175) ug/dL TIBC 180 L (228-460) ug/dL Ferritin 412.8 H (22.0-322.0) ng/mL AST (17-59) U/L ALT (4-49) U/L Alkaline Phosphatase (38-126) U/L Total Protein (6.3-8.2) g/dL Albumin (3.5-5.0) g/dL 08/30/20 08/31/20 08/31/20 Range/Units 20:15 05:12 05:12 WBC 2.7 L (3.8-10.6) k/uL RBC 3.26 L (4.30-5.90) m/uL Hgb 9.4 L (13.0-17.5) gm/dL Hct 29.9 L (39.0-53.0) % RDW 16.8 H (11.5-15.5) % Lymphocytes # (Manual) 0.70 L (1.0-4.8) k/uL Retic Count (0.5-2.0) % Potassium 3.4 L (3.5-5.1) mmol/L Chloride 108 H (98-107) mmol/L Glucose 186 H (74-99) mg/dL POC Glucose (mg/dL) 178 H (75-99) mg/dL Calcium 7.6 L (8.4-10.2) mg/dL Iron (65-175) ug/dL TIBC (228-460) ug/dL Ferritin (22.0-322.0) ng/mL AST (17-59) U/L ALT (4-49) U/L Alkaline Phosphatase 559 H (38-126) U/L Total Protein 4.2 L (6.3-8.2) g/dL Albumin 2.0 L (3.5-5.0) g/dL 08/31/20 Range/Units 06:57 WBC (3.8-10.6) k/uL RBC (4.30-5.90) m/uL Hgb (13.0-17.5) gm/dL Hct (39.0-53.0) % RDW (11.5-15.5) % Lymphocytes # (Manual) (1.0-4.8) k/uL Retic Count (0.5-2.0) % Potassium (3.5-5.1) mmol/L Chloride (98-107) mmol/L Glucose (74-99) mg/dL POC Glucose (mg/dL) 184 H (75-99) mg/dL Calcium (8.4-10.2) mg/dL Iron (65-175) ug/dL TIBC (228-460) ug/dL Ferritin (22.0-322.0) ng/mL AST (17-59) U/L ALT (4-49) U/L Alkaline Phosphatase (38-126) U/L Total Protein (6.3-8.2) g/dL Albumin (3.5-5.0) g/dL Microbiology - Last 24 Hours (Table) 08/30/20 18:24 Stool Culture - Preliminary Stool 08/29/20 16:31 Blood Culture - Preliminary Blood No Growth after 24 hours
--- NOTE | 2020-09-01 23:21 | P.PN ---
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 afebrile and feeling better Objective - Vital Signs Vital signs: Vital Signs Temp 98.3 F 09/01/20 04:47 Pulse 58 L 09/01/20 04:47 Resp 16 09/01/20 04:47 BP 117/57 09/01/20 04:47 Pulse Ox 99 09/01/20 04:47 Intake & Output 09/01/20 09/01/20 09/02/20 06:59 18:59 06:59 Weight 56.245 kg Other: Voiding Method Toilet Toilet Urinal - Exam - Constitutional General appearance: cooperative, no acute distress - EENT Dry mucus membraines, Lesions healing to lips (herpetic) Eyes: EOMI ENT: hard of hearing - Neck Neck: normal ROM - Respiratory Respiratory: bilateral: diminished - Cardiovascular Rhythm: regularly irregular - Gastrointestinal General gastrointestinal: soft, tenderness - Integumentary Integumentary: pale - Neurologic Neurologic: CNII-XII intact - Musculoskeletal Musculoskeletal: generalized weakness - Psychiatric Psychiatric: A&O x's 3, appropriate affect, intact judgment & insight - Labs CBC & Chem 7: 08/31/20 05:12 08/31/20 05:12 Labs: Abnormal Lab Results - Last 24 Hours (Table) 09/01/20 09/01/20 Range/Units 06:46 11:07 POC Glucose (mg/dL) 134 H 143 H (75-99) mg/dL Microbiology - Last 24 Hours (Table) 08/30/20 18:24 Stool Culture - Preliminary Stool 08/29/20 16:31 Blood Culture - Preliminary Blood No Growth after 72 hours 08/30/20 16:01 Blood Culture - Preliminary Blood No Growth after 48 hours Assessment and Plan (1) Cholangiocarcinoma Status: Acute Code(s): C22.1 - INTRAHEPATIC BILE DUCT CARCINOMA SNOMED Code(s): 606090932 (2) Fever Status: Acute Code(s): R50.9 - FEVER, UNSPECIFIED SNOMED Code(s): 643841021 (3) Systemic inflammatory response syndrome (SIRS) Status: Acute Code(s): R65.10 - SIRS OF NON-INFECTIOUS ORIGIN W/O ACUTE ORGAN DYSFUNCTION SNOMED Code(s): 417440971 Plan: Plan: - Hold Chemo until resolution of above - Await kohler cultures and continue abx Kohler cultures negative to date and afebrile 24-48 hours Hold chemo this week and will be seen in office prior to resuming Add PT and in chair daily Add Urea 40% cream hands and feet BID COntinue and re-inforced Incentive Spirometer DIscussed oral mouth care ok for dc from oncology standpoint, fu next week to evaluate for continuation of chemo discussed with primary team
== END 2020-09-01 12:23 | disposition home or self-care (01) | DRG 871 ==
LOC: EC 16:06 → 5NMEDONC 18:46
PROVIDERS: ADMIT Internal Medicine; ATTEND Internal Medicine
DX: A41.9 Sepsis, unspecified organism (principal); E43 Unspecified severe protein-calorie malnutrition; D61.89 Other specified aplastic anemias and other bone marrow failure syndromes; C22.1 Intrahepatic bile duct carcinoma; C24.0 Malignant neoplasm of extrahepatic bile duct; Z68.1 Body mass index [BMI] 19.9 or less, adult; E87.2 Acidosis; K83.09 Other cholangitis; Z20.822 Contact with and (suspected) exposure to COVID-19; I25.119 Atherosclerotic heart disease of native coronary artery with unspecified angina pectoris; I10 Essential (primary) hypertension; G89.29 Other chronic pain; E86.0 Dehydration; K21.9 Gastro-esophageal reflux disease without esophagitis; E11.9 Type 2 diabetes mellitus without complications; E78.5 Hyperlipidemia, unspecified; D70.3 Neutropenia due to infection; Z98.61 Coronary angioplasty status; Z95.1 Presence of aortocoronary bypass graft; Z90.411 Acquired partial absence of pancreas; Z87.891 Personal history of nicotine dependence; Z85.828 Personal history of other malignant neoplasm of skin; Z85.09 Personal history of malignant neoplasm of other digestive organs; Z85.05 Personal history of malignant neoplasm of liver; Z82.5 Family history of asthma and other chronic lower respiratory diseases; Z82.49 Family history of ischemic heart disease and other diseases of the circulatory system; Z82.0 Family history of epilepsy and other diseases of the nervous system; Z79.899 Other long term (current) drug therapy; Z79.84 Long term (current) use of oral hypoglycemic drugs; I25.2 Old myocardial infarction
CPT/HCPCS: 36415; 71045; 74177; 76705; 80053; 80202; 81003; 82607; 82728; 83540; 83550; 83605; 83630; 83735; 85025; 85027; 85045; 85610; 85730; 87040; 87045; 87046; 87636; 93005; 96361; 96365; 96367; 96375; 99285

== ENCOUNTER 2021-12-05 02:49 | Emergency (ER) | payer MEDICARE ==
--- NOTE | 2021-12-05 03:13 | ED ---
Fall HPI - General Source: EMS Mode of arrival: EMS - History of Present Illness MD Complaint: fall <Marlon Hawkins - Last Filed: 12/05/21 03:54> <Bon Grey - Last Filed: 12/05/21 10:48> - General Chief Complaint: Fall Stated Complaint: abd pain Time Seen by Provider: 12/05/21 02:51 - History of Present Illness Initial Comments: This is a pleasant 75-year-old male with a history of pancreatic cancer, status post Whipple procedure, metastatic disease to the liver, and cholangiocarcinoma. Also has a history of coronary artery disease, hypertension, hyperlipidemia. Patient on hospice. Patient had family's been on hospice for a 1 week. Patient has chronic pain secondary to cancer. Patient is on morphine at home. Patient had paracentesis a little over a week ago for a ascites. Apparently the patient has had increasing abdominal distention and increasing abdominal discomfort. She got up to go to the bathroom tonight and was using his walker but lost his balance and fell onto his back. Patient did strike the back of his head but denies any headache or neck pain. Patient initially had pain to his back and increased pain to his abdomen but was given a dose of his morphine and states the pain is now under control. Patient is at neurological baseline per family. Patient essentially alert and oriented 2. No headache, no fever or chills, no changes in vision or hearing, no sore throat or difficulty with speech, no neck pain, patient states some increased shortness of breath as the abdominal distention has progressed. ABDOMINAL distention with discomfort, no nausea or vomiting, no changes in urination or bowel movements, no numbness or tingling, no extremity pain, no skin rashes or lesions. Noted apparently the patient has been hypotensive which is not out of the thompson ry for the patient since prior to the start of hospice. Past medical, surgical, social, and family history reviewed. (Marlon Hawkins) - Related Data Home Medications Medication Instructions Recorded Confirmed Enalapril Maleate 5 mg PO BID 08/29/20 11/07/21 Lipase/Protease/Amylase [Joce Tyson 1 cap PO TID-W/MEALS 08/29/20 11/07/21 24,000 Unit Capsule] Metoprolol Tartrate [Lopressor] 50 mg PO BID 08/29/20 11/07/21 Omeprazole 20 mg PO BID 08/29/20 11/07/21 Sucralfate [Carafate] 1 gm PO TID 08/29/20 11/07/21 Tamsulosin HCl [Flomax] 0.4 mg PO DAILY 08/29/20 11/07/21 metFORMIN HCL [Glucophage] 1,000 mg PO BID-W/MEALS 08/29/20 11/07/21 ondansetron HCL [Zofran] 4 mg PO Q4H PRN 08/29/20 11/07/21 Atorvastatin [Lipitor] 40 mg PO DAILY 11/07/21 11/07/21 Loperamide [Imodium] 2 mg PO QID PRN 11/07/21 11/07/21 Allergies Allergy/AdvReac Type Severity Reaction Status Date / Time No Known Allergies Allergy Verified 12/05/21 03:03 Review of Systems ROS Other: All systems not noted in ROS Statement are negative. <Marlon Hawkins - Last Filed: 12/05/21 03:54> ROS Other: All systems not noted in ROS Statement are negative. <Bon Grey - Last Filed: 12/05/21 10:48> ROS Statement: Those systems with pertinent positive or pertinent negative responses have been documented in the HPI. Past Medical History Past Medical History: Coronary Artery Disease (CAD), Cancer, Chest Pain / Angina, Hyperlipidemia, Hypertension, Myocardial Infarction (IN) Additional Past Medical History / Comment(s): pancreatic cancer with whipple procedure now in liver Last Myocardial Infarction Date:: 2000 History of Any Multi-Drug Resistant Organisms: None Reported Past Surgical History: Cholecystectomy, Coronary Bypass/CABG, Heart Catheterization, Heart Catheterization With Stent, Hernia Repair Additional Past Surgical History / Comment(s): whipple procedure, multiple paracentesis procedures Date of Last Stent Placement:: 2000 Past Psychological History: No Psychological Hx Reported Smoking Status: Former smoker Past Alcohol Use History: None Reported Past Drug Use History: None Reported <Marlon Hawkins - Last Filed: 12/05/21 03:54> General Exam Limitations: no limitations General appearance: alert, in distress (Minimal) Head exam: Present: atraumatic, normocephalic, normal inspection Eye exam: Present: normal appearance, PERRL, EOMI. Absent: scleral icterus, conjunctival injection, periorbital swelling ENT exam: Present: normal exam, normal oropharynx, mucous membranes moist, normal external ear exam. Absent: mucous membranes dry Neck exam: Present: normal inspection, full ROM, other (No midline or paraspinal tenderness). Absent: tenderness, meningismus, lymphadenopathy Respiratory exam: Present: rales (Mild bibasilar rales). Absent: normal lung sounds bilaterally, respiratory distress, wheezes, rhonchi, stridor, chest wall tenderness, accessory muscle use Cardiovascular Exam: Present: regular rate, normal rhythm, normal heart sounds. Absent: systolic murmur, diastolic murmur, rubs, gallop, clicks GI/Abdominal exam: Present: distended, tenderness (Distention with generalized tenderness to palpation), hypoactive bowel sounds. Absent: guarding, rebound, rigid Extremities exam: Present: normal inspection, full ROM, normal capillary refill. Absent: tenderness, pedal edema, joint swelling, calf tenderness Back exam: Present: other (Kyphosis noted. No midline tenderness, superficial abrasion) Neurological exam: Present: alert, oriented X3, CN II-XII intact Psychiatric exam: Present: normal affect, normal mood Skin exam: Present: warm, dry, intact, normal color. Absent: rash <Marlon Hawkins - Last Filed: 12/05/21 03:54> - General Exam Comments Initial Comments: Patient pale in appearance. Cranial nerves II through XII are intact. Patient quite cachectic (Marlon Hawkins) Course Vital Signs 12/05/21 12/05/21 12/05/21 02:58 05:34 07:37 Temperature 97.9 F 97.9 F 97.8 F Pulse Rate 72 64 Respiratory 18 18 16 Rate Blood Pressure 76/53 89/50 89/50 O2 Sat by Pulse 97 94 L 94 L Oximetry 12/05/21 12/05/21 12/05/21 08:12 08:42 08:51 Temperature Pulse Rate 84 Respiratory 16 16 16 Rate Blood Pressure 88/50 81/50 O2 Sat by Pulse 96 Oximetry Medical Decision Making - Lab Data Result diagrams: 12/05/21 03:16 12/05/21 03:16 <Marlon Hawkins - Last Filed: 12/05/21 03:54> - Lab Data Result diagrams: 12/05/21 03:16 12/05/21 03:16 <Bon Grey - Last Filed: 12/05/21 10:48> - Medical Decision Making Hospice patient presents after mechanical fall. We'll obtain CT of the brain and elim ira spine. Gen. labs. The patient and family complaining of increasing abdominal distention secondary to ascites which is secondary to pancreatic cancer with metastatic disease to the liver. Patient scheduled for paracentesis on December 13. However according to the family they were instructed to go to the ER by hospice if they abdominal distention and discomfort has worsened. Workup pending, patient will be endorsed to the ED attending physician, Dr. Leyva at 4 AM. Case discussed in detail. (Marlon Hawkins) Endorsed from Dr. Mclaughlin for probable outpatient paracentesis. Radiology department cannot perform this as an outpatient. Hospice nurse was notified who will admit patient for respite care. Case discussed with Dr. obrien, who will admit covering Dr. Duran. (Bon Grey) - Lab Data Lab Results 12/05/21 12/05/21 12/05/21 Range/Units 03:16 03:16 03:16 WBC 8.3 (3.8-10.6) k/uL RBC 3.72 L (4.30-5.90) m/uL Hgb 12.6 L (13.0-17.5) gm/dL Hct 38.0 L (39.0-53.0) % MCV 102.0 H (80.0-100.0) fL MCH 33.8 (25.0-35.0) pg MCHC 33.2 (31.0-37.0) g/dL RDW 15.1 (11.5-15.5) % Plt Count 125 L (150-450) k/uL MPV 10.1 Neutrophils % 83 % Lymphocytes % 5 % Monocytes % 10 % Eosinophils % 1 % Basophils % 0 % Neutrophils # 6.9 (1.3-7.7) k/uL Lymphocytes # 0.4 L (1.0-4.8) k/uL Monocytes # 0.8 (0-1.0) k/uL Eosinophils # 0.1 (0-0.7) k/uL Basophils # 0.0 (0-0.2) k/uL Macrocytosis Slight PT 15.8 H (9.0-12.0) sec INR 1.5 H (<1.2) APTT 29.9 (22.0-30.0) sec Sodium 134 L (137-145) mmol/L Potassium 4.4 (3.5-5.1) mmol/L Chloride 107 (98-107) mmol/L Carbon Dioxide 19 L (22-30) mmol/L Anion Gap 8 mmol/L BUN 21 H (9-20) mg/dL Creatinine 0.83 (0.66-1.25) mg/dL Est GFR (CKD-EPI)AfAm >90 (>60 ml/min/1.73 sqM) Est GFR (CKD-EPI)NonAf 85 (>60 ml/min/1.73 sqM) Glucose 130 H (74-99) mg/dL Calcium 7.3 L (8.4-10.2) mg/dL Total Bilirubin 0.9 (0.2-1.3) mg/dL AST 29 (17-59) U/L ALT 19 (4-49) U/L Alkaline Phosphatase 284 H (38-126) U/L Total Protein 4.2 L (6.3-8.2) g/dL Albumin 1.7 L (3.5-5.0) g/dL Disposition <Marlon Hawkins - Last Filed: 12/05/21 03:54> Is patient prescribed a controlled substance at d/c from ED?: No Time of Disposition: 10:48 <Bon Grey - Last Filed: 12/05/21 10:48> Clinical Impression: Fall, Head injury, Hospice care patient Disposition: ADMITTED IP TO THIS HOSP Referrals: Gomez Duran MD [Primary Care Provider] - 1-2 days
[2021-12-05] MEDS ORDERED: SODIUM CHLORIDE 0.9% 500 ML 500 ML IV ONE (03:16)
[2021-12-05 03:31] LABS: Basophils % (A) 0 %; Eosinophils # (A) 0.1 k/uL (0-0.7); Eosinophils % (A) 1 %; HGB 12.6 gm/dL (13.0-17.5); Lymphocytes # (A) 0.4 k/uL (1.0-4.8); Lymphocytes % (A) 5 %; MCH 33.8 pg (25.0-35.0); MCHC 33.2 g/dL (31.0-37.0); Macrocytosis Slight; Mean Platelet Volume 10.1; Monocytes # (A) 0.8 k/uL (0-1.0); Monocytes % (A) 10 %; Neutrophils # (A) 6.9 k/uL (1.3-7.7); Neutrophils % (A) 83 %; Platelet Count 125 k/uL (150-450); RBC 3.72 m/uL (4.30-5.90); RDW 15.1 % (11.5-15.5); WBC 8.3 k/uL (3.8-10.6)
[2021-12-05 03:38] LABS: ALT 19 U/L (4-49); AST 29 U/L (17-59); African American GFR (CKD) >90 (>60 ml/min/1.73 sqM); Albumin 1.7 g/dL (3.5-5.0); Alkaline Phosphatase 284 U/L (38-126); Anion Gap 8 mmol/L; Blood Urea Nitrogen 21 mg/dL (9-20); Calcium 7.3 mg/dL (8.4-10.2); Carbon Dioxide 19 mmol/L (22-30); Chloride 107 mmol/L (98-107); Glucose 130 mg/dL (74-99); Non-African American GFR(CKD) 85 (>60 ml/min/1.73 sqM); Potassium 4.4 mmol/L (3.5-5.1); Sodium 134 mmol/L (137-145); Total Bilirubin 0.9 mg/dL (0.2-1.3); Total Protein 4.2 g/dL (6.3-8.2)
[2021-12-05 03:41] LABS: INR 1.5 (<1.2); Partial Thromboplastin Time 29.9 sec (22.0-30.0); Prothrombin Time 15.8 sec (9.0-12.0)
--- NOTE | 2021-12-05 03:51 | XR ---
EXAMINATION TYPE: XR abdomen acute w cxr DATE OF EXAM: 12/05/2021 COMPARISON: 08/29/2020 HISTORY: Fever TECHNIQUE: 4 views FINDINGS: There are sternal wires. There is some masslike infiltrate in the right midlung field. Hear t is deviated to the right side. Left lung is clear. No heart failure. Right pulmonary infiltrate maru sures 4.5 cm. There is no sign of intestinal obstruction or pneumoperitoneum. There is increased density over the a bdomen suggestive of ascites. There are clips from cholecystectomy. Fecal pattern is normal. IMPRESSION: Infiltrate in the right midlung field appears new compared to old exam. Nonacute bowel gas pattern. There is probably abdominal ascites.
--- NOTE | 2021-12-05 03:53 | CT ---
EXAMINATION TYPE: CT brain willis wo con DATE OF EXAM: 12/05/2021 COMPARISON: None HISTORY: FALL FROM BED CT DLP: 1250.5 mGycm Automated exposure control for dose reduction was used. Images obtained of the brain and cervical spine with no contrast. There is cerebral cortical atrophy. There is no mass effect normal Shift. No sign of intracranial hemorrhage. The calvarium is intact. There is normal aeration of the m astoid sinuses. There is mucosal thickening in the sphenoid sinus. The cervical vertebra have normal alignment. There is degenerative disc space narrowing in the lower cervical spine. No compression fracture. There is multilevel cervical facet arthropathy. Prevertebral soft tissues are intact IMPRESSION: Cerebral atrophy. No acute intracranial abnormality. Cervical multilevel spondylotic changes. No fracture seen.
[2021-12-05 07:40] VITALS: RESP 16; TEMP 97.8
[2021-12-05 08:52] VITALS: BP 81/50; PULSE 84
== END 2021-12-05 16:29 | disposition other institution (70) ==
LOC: EC 02:49
DX: Z51.5 Encounter for palliative care (principal); S09.90XA Unspecified injury of head, initial encounter; I25.10 Atherosclerotic heart disease of native coronary artery without angina pectoris; E78.5 Hyperlipidemia, unspecified; I10 Essential (primary) hypertension; I25.2 Old myocardial infarction; Z87.891 Personal history of nicotine dependence; Z79.84 Long term (current) use of oral hypoglycemic drugs; Z79.899 Other long term (current) drug therapy; W18.12XA Fall from or off toilet with subsequent striking against object, initial encounter
CPT/HCPCS: 36415; 70450; 72125; 74022; 80053; 85025; 85610; 85730; 93005; 99285

== ENCOUNTER 2021-12-05 09:51 | Inpatient (IN) | payer MEDICAID, MEDICARE ==
[2021-12-05] MEDS ORDERED: MORPHINE SULFATE 4 MG/ML SYRINGE IV PRN (09:54)
[2021-12-05] MEDS ORDERED: ONDANSETRON 4 MG/2 ML VIAL IVP PRN ×2 (09:54→10:21)
[2021-12-05] MEDS ORDERED: MORPHINE SULFATE 4 MG/ML SYRINGE IVP SCH (10:00)
[2021-12-05] MEDS ORDERED: MORPHINE SULFATE 4 MG/ML SYRINGE IVP PRN (10:16)
[2021-12-05] MEDS: MORPHINE SULFATE 4 MG/ML SYRINGE IVP SCH ×3 (10:18→18:07)
--- NOTE | 2021-12-05 15:17 | P.HPIM ---
History of Present Illness H&P Date: 12/05/21 This is a 75-year-old male who was recently under [facility] services at home and has been having frequent paracentesis with extensive ascites and was informed to come to the emergency department his pain had become too severe and family brought him here. Patient follows with Dr. Gomez Duran in the outpatient setting with a past medical history of coronary artery disease, pancreatic cancer now metastasis in the liver, chest pain angina, hyperlipidemia, hypertension, past medical history is of myocardial infarction. Patient is a former smoker denies any other illicit drug use or alcohol use. Patient to be hospitalized with GIP in [facility] services with comfort measures only. Orders have been placed. Review Of Systems: Constitutional: No fever, no chills, no night sweats. No weight change. Reports weakness, fatigue or lethargy. No daytime sleepiness. EENT: No headache. No blurred vision or double vision, no loss of vision. No loss of Hearing, no ringing in the ears, no dizziness. No nasal drainage or congestion. No epistaxis. No sore throat. Lungs: No shortness of breath, cough, no sputum production. No wheezing. Cardiovascular: No chest pain, no lower extremity edema. No palpitations. No paroxysmal nocturnal dyspnea. No orthopnea. No lightheadedness or dizziness. No syncopal episodes. Abdominal: Reports abdominal pain. No nausea, vomiting. No diarrhea. No constipation. No bloody or tarry stools.. Reports loss of appetite. Reports severe abdominal distention Genitourinary: No dysuria, increased frequency, urgency. No urinary retention. Musculoskeletal: No myalgias. No muscle weakness, no gait dysfunction, no frequent falls. No back pain. No neck pain. Integumentary: No wounds, no lesions. No rash or pruritus. No unusual bruising. No change in hair or nails. Neurologic: No aphasia. No facial droop. No change in mentation. No head injury. No headache. No paralysis. No paresthesia. Psychiatric: No depression. No anxiety. No mood swings. Endocrine: No abnormal blood sugars. No weight change. No excessive sweating or thirst. No cold intolerance. PHYSICAL EXAMINATION: GENERAL: The patient is alert and oriented x2-3, ill-appearing, elderly male thin built HEENT: Pupils are round and equally reacting to light. EOMI. no scleral icterus. No conjunctival pallor. Normocephalic, atraumatic. No pharyngeal erythema. No thyromegaly. CARDIOVASCULAR: S1 and S2 muffled PULMONARY: diminished breath sounds bilaterally with no wheezing, some scattered rhonchi noted. ABDOMEN: soft. Nontender on exam. distended, tympanic, normoactive bowel sounds. No palpable organomegaly. MUSCULOSKELETAL: No joint swelling or deformity. EXTREMITIES: No cyanosis, clubbing, or pedal edema. NEUROLOGICAL: Gross neurological examination did not reveal any focal deficits. Diffuse weakness SKIN: No rashes. Assessment: Falls with generalized weakness Abdominal pain with distention with ascites Recent paracentesis 2 over the last week History of pancreatic cancer with possible metastases to the liver Hyperlipidemia Hypertension History of coronary artery disease No code Plan: Recommend to continue with current medications and management per [facility] services. Patient is following with [facility] in the outpatient setting and instructed to come to the emergency department and currently working on GIP inpatient hospitalization for comfort measures only. Comfort orders and hospice order was placed in [facility] is following. Multiple family members at the bedside and questions and concerns were answered. Due to multiple complex medical issues, prognosis is guarded. The impression and plan of care has been dictated by Racquel Gallegos nurse practitioner as directed. Dr. Kuldeep MD I have performed a history and examination and MDM of this patient, discussed the same with the dictator, and agree with the dictator's assessment and plan as written ,documented as a scribe. Based on total visit time, I have performed more than 50% of the visit. Any additional findings or plans will be noted. 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 Last Myocardial Infarction Date:: 2000 History of Any Multi-Drug Resistant Organisms: None Reported Past Surgical History: Cholecystectomy, Coronary Bypass/CABG, Heart Cat heterization, Heart Catheterization With Stent, Hernia Repair Additional Past Surgical History / Comment(s): whipple procedure, multiple paracentesis procedures Date of Last Stent Placement:: 2000 Past Psychological History: No Psychological Hx Reported Smoking Status: Former smoker Past Alcohol Use History: None Reported Past Drug Use History: None Reported Medications and Allergies Home Medications Medication Instructions Recorded Confirmed Type Omeprazole 20 mg PO BID 08/29/20 12/05/21 History Tamsulosin HCl [Flomax] 0.4 mg PO BID 08/29/20 12/05/21 History metFORMIN HCL [Glucophage] 500 mg PO DAILY 08/29/20 12/05/21 History ondansetron HCL [Zofran] 4 mg PO Q4H PRN 08/29/20 12/05/21 History Aspirin EC [Ecotrin Low Dose] 81 mg PO HS 12/05/21 12/05/21 History Haloperidol Lactate 2mg/Ml Oral 0.5 ml PO Q6H PRN 12/05/21 12/05/21 History Concentratre Hyoscyamine Sulfate [Levsin-Sl] 0.125 mg SL Q4H PRN 12/05/21 12/05/21 History LORazepam [Ativan] 0.5 mg PO Q4H PRN 12/05/21 12/05/21 History Metoprolol Tartrate [Lopressor] 25 mg PO BID 12/05/21 12/05/21 History Morphine Sulfate Ir [MSIR] 15 mg PO Q6HR PRN 12/05/21 12/05/21 History Sennosides/Docusate Sodium [Senna 1 tab PO DAILY PRN 12/05/21 12/05/21 History Plus 8.6-50 mg Tablet] Allergies Allergy/AdvReac Type Severity Reaction Status Date / Time No Known Allergies Allergy Verified 12/05/21 03:03 Physical Exam Vitals: Vital Signs Pulse Resp BP Pulse Ox 12/05/21 14:00 75 20 84/48 91 L 12/05/21 10:15 78 18 82/55 99 Intake and Output 12/04/21 12/05/21 12/05/21 22:59 06:59 14:59 Other: Weight 63.5 kg Assessment and Plan Time with Patient: Greater than 30
[2021-12-05] MEDS ORDERED: ONDANSETRON 4 MG TAB PO PRN (17:17)
[2021-12-05] MEDS ORDERED: SENNOSIDES-DOCUSATE SODIUM 1 EACH TAB PO PRN (17:17)
[2021-12-05] MEDS ORDERED: HYOSCYAMINE SULFATE 0.125 MG TAB SL PRN (17:17)
[2021-12-05] MEDS ORDERED: LORazepam 0.5 MG TAB PO PRN (17:17)
[2021-12-05 18:16] LABS: Basophils % (A) 0 %; Eosinophils # (A) 0.1 k/uL (0-0.7); Eosinophils % (A) 1 %; HCT 34.4 % (39.0-53.0); HGB 11.4 gm/dL (13.0-17.5); Lymphocytes # (A) 0.5 k/uL (1.0-4.8); Lymphocytes % (A) 7 %; MCH 33.8 pg (25.0-35.0); MCV 102.3 fL (80.0-100.0); Macrocytosis Slight; Mean Platelet Volume 9.6; Monocytes # (A) 0.7 k/uL (0-1.0); Monocytes % (A) 11 %; Neutrophils # (A) 5.5 k/uL (1.3-7.7); Neutrophils % (A) 81 %; Platelet Count 105 k/uL (150-450); RBC 3.37 m/uL (4.30-5.90); RDW 15.3 % (11.5-15.5); WBC 6.8 k/uL (3.8-10.6)
[2021-12-05 18:47] LABS: INR 1.5 (<1.2); Prothrombin Time 15.6 sec (9.0-12.0)
[2021-12-05 19:52] LABS: Glucose,Whole Blood 90 mg/dL (70-110)
[2021-12-05] MEDS: METOPROLOL TARTRATE 25 MG TAB PO SCH (19:57)
[2021-12-05] MEDS: TAMSULOSIN 0.4 MG CAP.ER.24H PO SCH (19:57)
[2021-12-05] MEDS ORDERED: ASPIRIN 81 MG PO SCH (21:00)
[2021-12-06] MEDS: MORPHINE SULFATE 4 MG/ML SYRINGE IVP SCH ×6 (00:28→21:31)
[2021-12-06 07:13] LABS: Glucose,Whole Blood 88 mg/dL (70-110)
[2021-12-06] MEDS: METOPROLOL TARTRATE 25 MG TAB PO SCH ×2 (08:00→21:57)
[2021-12-06] MEDS: metFORMIN 500 MG TAB PO SCH (08:00)
[2021-12-06] MEDS: TAMSULOSIN 0.4 MG CAP.ER.24H PO SCH ×2 (08:00→21:57)
[2021-12-06] MEDS: PANTOPRAZOLE 40 MG TABLET PO SCH (08:01)
[2021-12-06 12:04] VITALS: BMI 19.0
[2021-12-06] MEDS ORDERED: SODIUM CHLORIDE 0.9% 500 ML 250 ML IV ONE (12:54)
--- NOTE | 2021-12-06 13:14 | US ---
Ultrasound-guided paracentesis. DATE OF EXAM: 12/06/2021 CLINICAL HISTORY: Ascites The procedure was discussed with the patient. The risks, complications, benefits, and alternatives we re discussed and any questions were answered. Informed consent was obtained. The patient was placed s upine on the ultrasound table and prepped and draped in the usual sterile fashion. All elements of maximal barrier technique were utilized. Under ultrasound guidance, access into the right lower quadrant was obtained, via the paracentesis catheter system and direct ultrasound guidanc e. Approximately 2.7 liters of straw-colored fluid was removed. The patient was stable throughout the pr ocedure and remained stable upon discharge from Department of Radiology. IMPRESSION: Successful paracentesis under ultrasound guidance.
--- NOTE | 2021-12-06 15:02 | P.PN ---
Subjective Progress Note Date: 12/06/21 This is a 75-year-old male who was recently under [facility] services at home and has been having frequent paracentesis with extensive ascites and was informed to come to the emergency department his pain had become too severe and family brought him here. Patient follows with Dr. Gomez Druan in the outpatient setting with a past medical history of coronary artery disease, pancreatic cancer now metastasis in the liver, chest pain angina, hyperlipidemia, hypertension, past medical history is of myocardial infarction. Patient is a former smoker denies any other illicit drug use or alcohol use. Patient to be hospitalized with GIP in [facility] services with comfort measures only. Orders have been placed. 12/06/2021 Patient is seen and evaluated in follow-up this morning with multiple members of his family at the bedside. Patient is scheduled for palliative paracentesis which is currently pending. Patient will likely be discharged after. [facility] is following and aware of the plan. Patient is afebrile denies chest pain or shortness of breath. Patient has very little intake mostly sleeping throughout the day. Review of systems: Unable to obtain as patient is currently sleeping. PHYSICAL EXAMINATION: GENERAL: The patient is alert and oriented x2-3, ill-appearing, elderly male thin built, lethargic HEENT: Pupils are round and equally reacting to light. EOMI. no scleral icterus. No conjunctival pallor. Normocephalic, atraumatic. No pharyngeal erythema. No thyromegaly. CARDIOVASCULAR: S1 and S2 muffled PULMONARY: diminished breath sounds bilaterally with no wheezing, some scattered rhonchi noted. ABDOMEN: soft. Nontender on exam. distended, tympanic, normoactive bowel sounds. No palpable organomegaly. MUSCULOSKELETAL: No joint swelling or deformity. EXTREMITIES: No cyanosis, clubbing, or pedal edema. NEUROLOGICAL: Gross neurological examination did not reveal any focal deficits. Diffuse weakness SKIN: No rashes. Assessment: Falls with generalized weakness Abdominal pain with distention with ascites Recent paracentesis 2 over the last week History of pancreatic cancer with possible metastases to the liver Hyperlipidemia Hypertension History of coronary artery disease No code Plan: Recommend to continue with current medications and management per [facility] services. IR was consulted for palliative paracentesis and patient had approximately 2.7 L removed although became hypotensive and paracentesis was discontinued. Patient continues with blood pressures of 80s systolic and recommend to continue with oral morphine as home dose and hold off on IV morphine and will give a 250 mL normal saline bolus and monitor closely. This was discussed with family along with [facility] hospice nurse with possible discharge in 24 hours. Plan is for palliative drainage tube to be inserted out of [facility] this Saturday. Overall prognosis remains guarded. The impression and plan of care has been dictated by Racquel Gallegos, nurse practitioner as directed. Dr. Kuldeep MD I have performed a history and examination and MDM of this patient, discussed the same with the dictator, and agree with the dictator's assessment and plan as written ,documented as a scribe. Based on total visit time, I have performed more than 50% of the visit. Any additional findings or plans will be noted. Objective - Vital Signs Vital signs: Vital Signs Temp 98.5 F 12/06/21 12:05 Pulse 91 12/06/21 14:05 Resp 16 12/06/21 11:50 BP 80/36 12/06/21 14:05 Pulse Ox 96 12/06/21 12:05 FiO2 Intake & Output 12/05/21 12/06/21 12/06/21 18:59 06:59 18:59 Intake Total 20 Output Total 350 Balance 20 -350 Weight 63.5 kg 63.5 kg Intake: Oral 20 Output: Urine 350 - Labs CBC & Chem 7: 12/05/21 17:59 Labs: Abnormal Lab Results - Last 24 Hours (Table) 12/05/21 12/05/21 Range/Units 17:59 17:59 RBC 3.37 L (4.30-5.90) m/uL Hgb 11.4 L (13.0-17.5) gm/dL Hct 34.4 L (39.0-53.0) % MCV 102.3 H (80.0-100.0) fL Plt Count 105 L (150-450) k/uL Lymphocytes # 0.5 L (1.0-4.8) k/uL PT 15.6 H (9.0-12.0) sec INR 1.5 H (<1.2)
[2021-12-06] MEDS: MORPHINE SULFATE IR 15 MG TABLET PO PRN (17:30)
[2021-12-07] MEDS: MORPHINE SULFATE 4 MG/ML SYRINGE IVP SCH ×3 (03:35→12:09)
[2021-12-07 05:30] VITALS: PULSE 111; RESP 20; TEMP 97.5
[2021-12-07] MEDS: PANTOPRAZOLE 40 MG TABLET PO SCH (08:32)
[2021-12-07] MEDS: TAMSULOSIN 0.4 MG CAP.ER.24H PO SCH (08:32)
[2021-12-07] MEDS: metFORMIN 500 MG TAB PO SCH (08:35)
[2021-12-07] MEDS: METOPROLOL TARTRATE 25 MG TAB PO SCH (08:35)
[2021-12-07] MEDS: SODIUM CHLORIDE 0.9% 250 ML IV SCH ×5 (10:26→17:38)
[2021-12-07 11:08] VITALS: BP 83/41
[2021-12-07] MEDS ORDERED: SODIUM CHLORIDE 0.9% 500 ML 250 ML IV SCH (11:30)
[2021-12-07] MEDS: MORPHINE SULFATE IR 15 MG TABLET PO PRN (17:22)
--- NOTE | 2021-12-09 19:33 | P.DS ---
Providers Date of admission: 12/05/21 10:14 Expected date of discharge: 12/07/21 Attending physician: Donny Light Primary care physician: Gomez Duarn Hospital Course: Final Diagnosis Falls with generalized weakness Abdominal pain with distention with ascites Recent paracentesis 2 over the last week History of pancreatic cancer with possible metastases to the liver Hyperlipidemia Hypertension History of coronary artery disease No code Discharge disposition Patient is being discharged in a stable condition with guarded prognosis to home with hospice. Patient will follow-up with Dr. Duran in the outpatient setting upo n discharge. Patient is to continue with [facility] and possible palliative abdominal drain next week for ascites. Total time taken is greater than 35 minutes. Hospital course This is an 75-year-old male who was recently admitted with acute abdominal pain and in need of palliative paracentesis for ascites. Patient is on hospice and receiving palliative drain for frequent ascites. Patient underwent paracentesis of approx 2. 7 liters removed although became hypotensive. Patient blood pressure slightly improved and being discharged home with hospice today. Continue pain control per hospice and possible drain placement next week. Patient overall prognosis is extremely guarded and poor. Patient is not eating. Currently no reports of chest pain, shortness of breath, or palpitations. Mary Alice ent is afebrile. No reports of nausea or vomiting and patient is not eating. Having pain in the abdomen. Patient will be discharged home today. On exam vital signs are stable. Cardio S1, S2 are muffled. Respiratory system shows diminished breath sounds at the bases with no wheezing or rhonchi noted. Abdomen is soft and nontender. Nervous system shows diffuse weakness. Please refer to medication reconciliation sheet for a list of medications. The impression and plan of care has been dictated by Racquel Gallegos, Nurse Practitioner as directed. Dr. Kuldeep MD I have performed a history and examination and MDM of this patient, discussed the same with the dictator, and agree with the dictator's assessment and plan as written ,documented as a scribe. Based on total visit time, I have performed more than 50% of the visit. Patient Condition at Discharge: Poor Plan - Discharge Summary Discharge Rx Participant: No New Discharge Prescriptions: Continue metFORMIN HCL [Glucophage] 500 mg PO DAILY Omeprazole 20 mg PO BID Morphine Sulfate Ir [MSIR] 15 mg PO Q6HR PRN PRN Reason: Pain Metoprolol Tartrate [Lopressor] 25 mg PO BID Haloperidol Lactate 2mg/Ml Oral Concentratre 0.5 ml PO Q6H PRN PRN Reason: Agitation ondansetron HCL [Zofran] 4 mg PO Q4H PRN PRN Reason: Nausea And Vomiting Tamsulosin HCl [Flomax] 0.4 mg PO BID Sennosides/Docusate Sodium [Senna Plus 8.6-50 mg Tablet] 1 tab PO DAILY PRN PRN Reason: Constipation LORazepam [Ativan] 0.5 mg PO Q4H PRN PRN Reason: Anxiety Hyoscyamine Sulfate [Levsin-Sl] 0.125 mg SL Q4H PRN PRN Reason: Secretions Discontinued Aspirin EC [Ecotrin Low Dose] 81 mg PO HS Discharge Medication List Omeprazole 20 mg PO BID 08/29/20 [History] Tamsulosin HCl [Flomax] 0.4 mg PO BID 08/29/20 [History] metFORMIN HCL [Glucophage] 500 mg PO DAILY 08/29/20 [History] ondansetron HCL [Zofran] 4 mg PO Q4H PRN 08/29/20 [History] Haloperidol Lactate 2mg/Ml Oral Concentratre 0.5 ml PO Q6H PRN 12/05/21 [History] Hyoscyamine Sulfate [Levsin-Sl] 0.125 mg SL Q4H PRN 12/05/21 [History] LORazepam [Ativan] 0.5 mg PO Q4H PRN 12/05/21 [History] Metoprolol Tartrate [Lopressor] 25 mg PO BID 12/05/21 [History] Morphine Sulfate Ir [MSIR] 15 mg PO Q6HR PRN 12/05/21 [History] Sennosides/Docusate Sodium [Senna Plus 8.6-50 mg Tablet] 1 tab PO DAILY PRN 12/05/21 [History] Follow up Appointment(s)/Referral(s): Gomez Duran MD [Primary Care Provider] - 1 Week Patient Instructions/Handouts: Ascites (DC), Paracentesis (DC) Activity/Diet/Wound Care/Special Instructions: Patient is returning home on hospice with [facility] following Activity as tolerated Patient to follow-up at [facility] on Saturday for palliative catheter for frequent ascites continue current diet Continue medications as prescribed Discharge Disposition: HOME WITH HOSPICE
== END 2021-12-07 18:23 | disposition hospice, home (50) | DRG 951 ==
LOC: EC 09:51 → 5NMEDONC 10:14
PROVIDERS: ADMIT Hospitalist; ATTEND Hospitalist
PROC: 0W9G3ZZ Drainage of Peritoneal Cavity, Percutaneous Approach (ICD-10-PCS; principal; 2021-12-06)
DX: Z51.5 Encounter for palliative care (principal); C78.7 Secondary malignant neoplasm of liver and intrahepatic bile duct; R18.8 Other ascites; I10 Essential (primary) hypertension; I95.9 Hypotension, unspecified; E78.5 Hyperlipidemia, unspecified; I25.119 Atherosclerotic heart disease of native coronary artery with unspecified angina pectoris; R53.1 Weakness; I25.2 Old myocardial infarction; Z87.891 Personal history of nicotine dependence; Z79.899 Other long term (current) drug therapy; Z85.07 Personal history of malignant neoplasm of pancreas; Z79.84 Long term (current) use of oral hypoglycemic drugs; Z95.1 Presence of aortocoronary bypass graft; Z91.81 History of falling; Z28.310 Unvaccinated for COVID-19
CPT/HCPCS: 49083; 85025; 85610